=== PATIENT | male | born 1965 | race African-American/Black ===

== ENCOUNTER 2019-03-16 08:59 | Emergency (ER) | payer BC, MEDICARE, SELFPAY ==
[2019-03-16 09:36] VITALS: BP 144/86; PULSE 54; RESP 18; TEMP 36.9; O2SAT 98
--- NOTE | 2019-03-16 09:44 | ED.BACK ---
HPI - Back Pain/Injury General Chief Complaint: Extremity Problem,Nontraumatic Stated Complaint: Right Hip Pain Time Seen by Provider: 03/16/19 09:36 Source: patient and RN notes reviewed Mode of arrival: ambulatory Limitations: no limitations History of Present Illness HPI Narrative: Patient presents today with a 5-day history of right hip pain occasionally radiating down the right leg when he walks. He does report history of chronic low back pain. Denies numbness or tingling in the legs or feet. Denies any loss of bowel or bladder control. He currently rates his pain at rest 8/10, which increases to 10/10 with walking. He has been using BenGay, a pain patch, and Tylenol without much relief. Prior to onset of these symptoms, patient did help his brother move and was jumping up and down from a moving truck MD elicited complaint: back pain Related Data Home Medications Medication Instructions Recorded Confirmed albuterol sulfate 2 inh INHALATION DAILY 03/16/19 03/16/19 duloxetine 40 mg PO DAILY 03/16/19 03/16/19 montelukast 10 mg PO DAILY 03/16/19 03/16/19 pregabalin 200 mg PO DAILY 03/16/19 03/16/19 Allergies Allergy/AdvReac Type Severity Reaction Status Date / Time Iodinated Contrast Media Allergy Severe SOB, Unverified 03/16/19 09:08 THROAT TIGHTNESS, RASH Shrimp Allergy Severe SOB, Uncoded 03/16/19 09:08 THROAT TIGHTNESS, RASH Review of Systems Review of Systems: Narrative: CONSTITUTIONAL: Denies body aches, fever, chills, or sweats. EYES: Denies visual changes, redness, or discharge. ENT: Denies rhinorrhea, congestion, sore throat, or otalgia. CARDIOVASCULAR: Denies chest pain, palpitations, or edema. RESPIRATORY: Denies cough or dyspnea. GASTROINTESTINAL: Denies abdominal pain, nausea, vomiting, or diarrhea. GENITOURINARY: Denies dysuria or hematuria. SKIN: Denies rash, itching, or wounds. MUSCULOSKELETAL: Denies myalgia.+ Back pain, right hip pain NEUROLOGIC: Denies headache, numbness, tingling, or weakness. PSYCH: Denies depression or anxiety. PMFSH Comments At time of signature, I have reviewed and agree with nursing past medical, surgical, social and family history unless otherwise noted. Please see nursing chart for further information. There is no relevant family history pertinent to the presenting complaint Exam Narrative: Exam Narrative: GENERAL: Well-appearing, well-nourished, and in no acute distress. Pain out of proportion to exam findings. HEAD: Normocephalic, atraumatic. EYES: EOMI. No redness or drainage. Conjunctivae normal. ENT: Mucous membranes pink and moist. NECK: Normal AROM. Supple. No lymphadenopathy. CHEST: No respiratory distress. MUSCULOSKELETAL: No bony tenderness of the spine. Tenderness to the right SI joint and surrounding musculature. Palpation of the right SI joint causes reproducible shooting pain down the leg. Distal sensation intact. Saddle sensation intact. Capillary refill normal. Posterior tibial pulse normal. Leg strength normal and equal. EXTREMITIES: Normal range of motion. No edema. SKIN: Warm, dry, no rash. NEURO: No focal deficits. Alert and oriented x3. Gait steady. PSYCH: Normal affect. No signs of depression or anxiety. Course Vital Signs Vital signs: Vital Signs Temperature 98.5 F 03/16/19 09:36 Pulse Rate 54 L 03/16/19 09:36 Respiratory Rate 18 03/16/19 09:36 Blood Pressure 144/86 H 03/16/19 09:36 Pulse Oximetry 98 03/16/19 09:36 Temperature 98.5 F 03/16/19 09:36 Pulse Rate 54 L 03/16/19 09:36 Respiratory Rate 18 03/16/19 09:36 Blood Pressure 144/86 H 03/16/19 09:36 Pulse Oximetry 98 03/16/19 09:36 Reviewed. Pt has been instructed to follow up with his PCP regarding his elevated blood pressure today. MDM - Back Pain/Injury Differential Diagnosis Differential diagnosis: Likely lumbar radiculopathy, sciatica and strain of lumbar region Critical Care Time Critical Car
== END 2019-03-16 09:50 | disposition home or self-care (01) ==
PROVIDERS: Emergency Provider Nurse Practitioner
DX: M54.31 Sciatica, right side (principal); I20.9 Angina pectoris, unspecified; E78.00 Pure hypercholesterolemia, unspecified; I10 Essential (primary) hypertension; I25.2 Old myocardial infarction; Z86.711 Personal history of pulmonary embolism; K21.9 Gastro-esophageal reflux disease without esophagitis; M19.90 Unspecified osteoarthritis, unspecified site
CPT/HCPCS: 99203; G0463

== ENCOUNTER 2019-03-21 10:01 | Emergency (ER) | payer BC, MEDICARE, SELFPAY ==
--- NOTE | ~2019-03-21 | XR_ITS ---
XR hip RT min 2V DATE: 03/21/2019 11:06 INDICATION: Right hip pain TECHNIQUE: AP, lateral, crosstable lateral views COMPARISON: None FINDINGS: Postoperative change at L4-5. No fracture, dislocation, avascular necrosis or bone destruction of the right hip. Right hip joint sp nic is well preserved. Pubic symphysis and sacroiliac joints are intact. IMPRESSION: Negative right hip Reviewed, dictated and finalized at location A. TARY CHEMIST IMPRESSION: Negative right hip
--- NOTE | ~2019-03-21 | XR_ITS ---
XR lumbar spine 2-3V DATE: 03/21/2019 11:07 INDICATION: Lower back pain, right leg pain. History of back surgery. TECHNIQUE: AP, lateral, coned lateral lumbosacral views COMPARISON: 06/24/2016 lumbar spine FINDINGS: Again noted is postoperative change from anterior and interbody spinal fusion at L4-5. There is severe degenerative disc disease at L1-2, L2-3, L3-4, advanced since 06/24/2006. There is dis c space narrowing, prominent degenerative spurring and eburnation at each of these levels. No fracture or bone destruction is evident. The lumbar pedicles are intact. The sacroiliac joints domonique ear normal. IMPRESSION: Status post anterior and interbody spinal fusion at L4-5 Severe degenerative disc disease at L1-2 through L3-4 Reviewed, dictated and finalized at location A. RD CENTER SPECIALIST
[2019-03-21 10:21] VITALS: BP 142/86; PULSE 61; RESP 18; TEMP 36.2; O2SAT 100
--- NOTE | 2019-03-21 10:43 | ED.GENADULT ---
HPI - General Adult General Chief complaint: Extremity Injury, Lower Stated complaint: Pain in Thigh Time Seen by Provider: 03/21/19 10:43 Source: patient and RN notes reviewed Mode of arrival: ambulatory Limitations: no limitations History of Present Illness HPI narrative: This patient's had a 2-week history of right-sided back pain in the LS area and right hip which is now been radiating down the posterior aspect of the right leg to the sole of the foot. This is associated with numbness and tingling sensation as well as intermittent sharp pain. Is worse if he moves or bends over. He has had an LS fusion in 2003 at L4-L5 for degenerative disc disease. He has never had any fractures of his vertebra or his hip. He has never been told he has underlying osteoarthritis of the LS spine or right hip. The leg does not click, lock, pop, or give out on him. He is having no left-sided pain and no pain that radiates into the left gluteal area or down the left leg. He has no upper extremity, thoracic, or neck pain. He is otherwise been feeling well without any ear pain, no nasal drainage, no sore throat, no fever, no cough. He has had no nausea, no vomiting, no diarrhea. He has had no hematuria, no dysuria, no pyuria. He has had no rashes. He said no exposure to anyone with respiratory infections that he is aware of. Related Data Home Medications Medication Instructions Recorded Confirmed albuterol sulfate 2 inh INHALATION DAILY 03/16/19 03/16/19 duloxetine 40 mg PO DAILY 03/16/19 03/16/19 montelukast 10 mg PO DAILY 03/16/19 03/16/19 pregabalin 200 mg PO DAILY 03/16/19 03/16/19 prednisone 03/21/19 tadalafil mg 03/21/19 Allergies Allergy/AdvReac Type Severity Reaction Status Date / Time Iodinated Contrast Media Allergy Severe SOB, Unverified 03/16/19 09:08 THROAT TIGHTNESS, RASH Shrimp Allergy Severe SOB, Uncoded 03/16/19 09:08 THROAT TIGHTNESS, RASH Review of Systems Review of Systems: Narrative: CONSTITUTIONAL: Denies fever, chills, or sweats. Noncontributory except as pertains to the past medical history and history of present illness. EYES: Denies visual changes, redness, or discharge. ENT: Denies rhinorrhea, congestion, sore throat, or otalgia. CARDIOVASCULAR: Denies chest pain, palpitations, or edema. RESPIRATORY: Denies cough or dyspnea. GASTROINTESTINAL: Denies abdominal pain, nausea, vomiting, or diarrhea. GENITOURINARY: Denies dysuria or hematuria. SKIN: Denies rash or itching. MUSCULOSKELETAL: Denies back pain, joint pain, or myalgia. NEUROLOGIC: Denies headache, numbness, or weakness. PSYCHIATRIC: Denies anxiety or depression. PMFSH Comments At time of signature, I have reviewed and agree with nursing past medical, surgical, social, and family history.Please see nursing chart for further information. There is no relevant family history pertinent to the presenting complaint. Exam Narrative: Exam Narrative: GENERAL: Well-appearing, well-nourished, and in no acute distress. HEAD: Normocephalic, atraumatic. EYES: PERRLA and EOMI. EARS: TM's clear bilaterally and the canals are clear. NOSE: Nares clear, no rhinorrhea or epistaxis. THROAT:Mucous membranes moist.Oropharynx normal without erythema or exudates. NECK: Supple. No adenopathy of the neck, supraclavicular, axillary, or inguinal areas. There is no CVA pain. No pain in McBurney's point. Patient is a negative Bahena sign RESPIRATORY: No respiratory distress. Airway patent. Respirations non-labored. Clear to auscultation. HEART: Regular rate and rhythm. No murmur heard. Normal peripheral pulses. ABDOMEN: Soft, nontender, nondistended, normal active bowel sounds.No masses. No rebound or guarding, No organomegaly. And negative Rovsing sign. There are no pulsatile masses and no audible bruits. EXTREMITIES: No clubbing/cyanosis/ edema. Normal strength & range of motion. The patient has palpation tenderness on the right side of the
== END 2019-03-21 11:34 | disposition home or self-care (01) ==
PROVIDERS: Emergency Provider Family Medicine
DX: M54.31 Sciatica, right side (principal); I10 Essential (primary) hypertension; I25.2 Old myocardial infarction; Z98.1 Arthrodesis status
CPT/HCPCS: 72100; 73502; 99213; G0463

== ENCOUNTER → 2019-04-07 08:14 | Outpatient (CLI) | payer BC, MEDICARE, SELFPAY ==
--- NOTE | ~2019-04-07 | MR_ITS ---
EXAMINATION: MR lumbar spine wo con EXAM DATE: 04/07/2019 08:52 INDICATION: Lumbar radiculopathy. TECHNIQUE: Multi-sequential, multiplanar MR images of the lumbar spine were obtained without contrast . Sagittal T1, T2, T2 fat saturation images. Axial T2 weighted images. There is no prior study for comparison. FINDINGS: There is anterior and interbody fusion L4-5. There is moderate to severe disc disease L1-L4 , mild to moderate at L5-S1. Mild diffuse loss of lumbar vertebral body heights. Multilevel endplate degenerative signal change. There is 3 mm retrolisthesis L2 on L3, L3 on L4, L5 on S1. The conus medu llaris terminates at the T12-L1 level and has normal signal intensity and morphology. Paraspinal sof t tissue is unremarkable. Level by level evaluation: T12-L1: There is a mild diffuse disc bulge. Facet arthropathy: Mild. Neural foraminal stenosis: Mild bilateral. Central canal stenosis: No stenosis. L1-L2: There is a moderate diffuse disc bulge. Facet arthropathy: Mild to moderate. Neural foraminal stenosis: Moderate bilateral. Central canal stenosis: Mild. L2-L3: There is a moderate to large diffuse disc bulge. Facet arthropathy: Mild to moderate. Neural foraminal stenosis: Moderate to severe right, moderate left. Central canal stenosis: Mild to moderate. L3-L4: There is a moderate to large diffuse disc bulge. Facet arthropathy: Mild to moderate. Neural foraminal stenosis: Moderate to severe right, moderate left. Central canal stenosis: Moderate. L4-L5: This level is fused. Facet arthropathy: Mild. Neural foraminal stenosis: Mild bilateral. Central canal stenosis: No stenosis. L5-S1: There is a mild to moderate diffuse disc bulge. Facet arthropathy: Mild to moderate. Neural foraminal stenosis: Moderate bilateral. Central canal stenosis: Mild. IMPRESSION: 1. Advanced upper lumbar disc disease. Reviewed, dictated and finalized at location B. ATE BRANCH EXCHANGE SERVICE ADVISER
--- NOTE | ~2019-04-07 | XR_ITS ---
EXAMINATION: XR lumbar spine 6V w bending EXAM DATE: 04/07/2019 09:13 INDICATION: Lumbar radiculopathy. Right leg pain. TECHNIQUE: Lumber spine frontal, lateral, bilateral oblique projections. Coned down frontal and lat eral L5-S1 lumbar projections for interpretation. Additional lateral flexion and lateral extension p rojections obtained. FINDINGS: No spondylolysis suspected. There is anterior and interbody fusion L4-5. Moderate to severe disc disease L1-L4. There is 3 mm retrolisthesis L3 on L4 and L4 on L5 on the lateral projections. T here is about 2 mm retrolisthesis L1 on L2 on the extension projection which normalizes on the flexio n projection. There are moderate-sized bilateral bridging endplate osteophytes L1-L4. There is mild t o moderate lumbar facet arthropathy. Sacrum, sacroiliac joints, sacral arcuate lines are intact. Para spinal soft tissue is unremarkable. Mild diffuse loss of vertebral body heights without acute fractur e line identified. IMPRESSION: 1. Advanced upper lumbar disc disease. 2. Grade 1 retrolistheses as above. Reviewed, dictated and finalized at location B. L CUTTER
== END ==
PROVIDERS: Visit Provider Physician Assistant Medical
DX: M54.16 Radiculopathy, lumbar region (principal); M51.36 Other intervertebral disc degeneration, lumbar region
CPT/HCPCS: 72114; 72148

== ENCOUNTER 2020-01-01 11:48 | Observation (INO) | payer BC, MEDICARE, SELFPAY ==
[2020-01-01] VITALS (29 sets, daily range): BP systolic 116–157; BP diastolic 50–98; PULSE 76–115; RESP 16–31; TEMP 36.8–37.9; O2SAT 92–98
--- NOTE | ~2020-01-01 | XR_ITS ---
EXAMINATION: XR shoulder LT min 2V EXAM DATE: 01/02/2020 13:52 INDICATION: Initial encounter following injury, with pain of the left shoulder. Fall. TECHNIQUE: The following left shoulder projections obtained: frontal projection with internal rotatio n, frontal projection with external rotation, Grashey, and scapular Y view (4+ views). There is no p rior study for comparison. FINDINGS: No evidence of left shoulder rotator cuff calcific tendinosis. There is mild glenohumera l and acromioclavicular joint primary osteoarthritis. There are no acute fractures or dislocations id entified. There is no subcutaneous gas. The soft tissue is unremarkable. There are no radiopaque foreign bodies. IMPRESSION: 1. Left shoulder exam without acute osseous findings. Reviewed, dictated and finalized at location A. CAPTAIN
--- NOTE | ~2020-01-01 | XR_ITS ---
EXAMINATION: XR chest 1V portable EXAM DATE: 01/01/2020 12:55 INDICATION: covid+/shortness of breath. TECHNIQUE: Portable AP frontal chest x-ray was obtained. Comparison is made to prior examination from 02/21/2015. FINDINGS: Moderate amount of patchy bilateral mid and lower lung zone acute airspace disease. Appeara nce is consistent with provided history of COVID-19. Elevated left hemidiaphragm is unchanged compare d to prior study. No pneumothorax or pleural effusion. The cardiomediastinal silhouette is prominent but magnified on this AP technique. IMPRESSION: Moderate amount of bilateral patchy acute infectious process. Reviewed, dictated and finalized at location A. TING SERVICES COORDINATOR
--- NOTE | ~2020-01-01 | CT_ITS ---
EXAMINATION: CT brain wo con EXAM DATE: 01/02/2020 13:03 INDICATION: Dizziness, fall. TECHNIQUE: Spiral CT of the head was performed without contrast. Axial, coronal and sagittal images were reviewed. The dose-length product (DLP) for this examination was 605.33 mGy-cm. The exposure w as tailored according to patient size, and iterative reconstruction (ASIR) was used as additional dos e reduction technique. There is no prior study for comparison. FINDINGS: There is no acute intraparenchymal hemorrhage. No evidence of intraparenchymal brain mass lesion. No evidence of acute infarction. There is no mass effect or midline shift. The ventricles are normal in size. There are no extra-axial collections. There are no acute calvarial fractures. T he orbits are unremarkable. Soft tissue is unremarkable. The visualized sinuses and mastoid air jessica ls are well aerated. IMPRESSION: 1. No acute intracranial findings. Reviewed, dictated and finalized at location A. D DEVELOPMENT MANAGER
--- NOTE | ~2020-01-01 | CT_ITS ---
EXAMINATION: CTA chest PE protocol EXAM DATE: 01/03/2020 09:10 INDICATION: Tachypnea, tachycardia . COVID 19 positive. Flow in TECHNIQUE: Spiral CTA of the chest (pulmonary arteries) was performed with 100 cc Omnipaque 350 intr avenous contrast injection. Images were acquired during the pulmonary arterial phase. Coronal maxi mum intensity projection 3D-reconstructions were created by the technologist on dedicated workstation . Axial, coronal and sagittal reformatted images were reviewed. The dose-length product (DLP) for t his examination was 728.53 mGy-cm. The exposure was tailored according to patient size (auto mA exp osure control), and iterative reconstruction (ASIR) was used as additional dose reduction technique. Comparison is made to prior examination from 12/29/2010. FINDINGS: Pulmonary arteries are well opacified and without intraluminal filling defects. No thora cic aortic dissection. Moderate amount of patchy bilateral groundglass opacities with small regions of linear confluence. Appearance is consistent with COVID-19 pneumonia. There are no pleural or benji cardial effusions. Tracheobronchial tree is patent. There is no mediastinal, hilar or axillary ly mphadenopathy. There is no pneumothorax. Heart normal in size. No evidence of coronary arterial calcification. Upper abdomen is unremarkable. There is mild thoracic spondylosis without osteobla stic or osteolytic lesions identified. IMPRESSION: 1. No pulmonary emboli. 2. Moderate amount of acute airspace disease consistent with COVID-19 pneumonia. Reviewed, dictated and finalized at location B. NESS PROGRAM COORDINATOR IMPRESSION: 1. No pulmonary emboli. 2. Moderate amount of acute airspace disease consistent with COVID-19 pneumoni a.
--- NOTE | 2020-01-01 11:54 | ECG_ITS ---
Measurements Intervals [place] Rate: 115 P: 42 MN: 169 QRS: 56 QRSD: 84 T: -7 QT: 301 QTc: 418 Interpretive Statements SINUS TACHYCARDIA EARLY PRECORDIAL R/S TRANSITION NONSPECIFIC T-WAVE ABNORMALITY- ANTEROLAT/INF LEADS BASELINE ARTIFACT- I, II, AVR, AVL, AVF, V4-V6 ABNORMAL ECG Electronically Signed On 01-01-2020 17:00:51 TANK INSULATOR RUBBER by Adama Shell D.O.
[2020-01-01 12:14] LABS: Basophils Percent Auto 0.2 % (0.2-1.2); Hematocrit 41.6 % (42.0-52.0); Hemoglobin 14.7 g/dL (14.0-18.0); Immature Granulocyte Absolute 0.08 K/mm3 (0.00-0.031); Immature Granulocyte Percent A 0.7 % (0-0.5); Lymphocytes Absolute Auto 0.86 K/mm3 (0.9-3.2); Mean Corpuscular HGB Conc 35.3 g/dl (32-36); Mean Corpuscular Hemoglobin 28.2 pg (26-34); Mean Corpuscular Volume 79.7 fl (80-100); Mean Platelet Volume 10.9 fl (7.4-10.4); Monocytes Absolute Auto 0.3 K/mm3 (0.1-0.6); Monocytes Percent Auto 3.1 % (2.6-8.5); Neutrophils Absolute Auto 9.5 K/mm3 (1.3-6.7); Platelet Count Result 249 k/mm3 (150-375); Red Blood Count 5.22 M/mm3 (4.6-6.20); Red Cell Distribution Width 13.2 % (11.5-14.5); White Blood Count 10.8 K/mm3 (4.5-10.0)
[2020-01-01 12:28] LABS: Alanine Aminotransferase 15 U/L (4-50); Albumin Level 4.2 g/dL (3.5-5.1); Alkaline Phosphatase 77 U/L (38-126); Anion Gap 9 mmol/L (8-16); Aspartate Amino Transferase 36 U/L (17-59); Bilirubin,Total 0.9 mg/dL (0.2-1.3); Blood Urea Nitrogen 14 mg/dL (9-20); CRP 4.6 mg/dL (<1.0); Carbon Dioxide 28 mmol/L (22-30); Chloride 97 mmol/L (98-107); Estimated CRCL calculation 84 ml/min; Estimated Glomerular Filt Rate > 60; Glucose 156 mg/dL (75-110); Potassium 3.9 mmol/L (3.4-5.0); Sodium 134 mmol/L (137-145)
[2020-01-01 12:30] LABS: INR 1.1; Prothrombin Time 14.7 Seconds (11.1-14.7)
[2020-01-01] MEDS: ACETAMINOPHEN 500 MG TABLET 1000 MG PO (13:54)
[2020-01-01] MEDS: SODIUM CHLORIDE 0.9% IV 1,000 ML 999 ML IV CONT (13:54)
[2020-01-01] MEDS: DEXAMETHASONE SOD PHOS INJ 4 MG/ML VIAL 6 MG IV PUSH (13:54)
[2020-01-01 13:59] LABS: Add Urine Microscopic? YES; Appearance Urine Clear (Clear); Bilirubin Urine Negative (Negative); Blood Urine Negative (Negative); Color Urine Yellow (Yellow); Glucose Urine UA Negative (Negative); Ketones Urine Negative (Negative); Leukocyte Esterase Ur Negative LEU/UL (Negative); Nitrate Urine Negative (Negative); Protein Urine 2+ mg/dL (Negative); RBC Urine 0-2 /hpf (0-2); Squamous Epithelial Cell Urine Rare /hpf (Few); WBC Urine 0-3 /hpf
--- NOTE | 2020-01-01 14:52 | ED.SOB ---
HPI - SOB/Dyspnea General Chief Complaint: Shortness of Breath/Dyspnea Stated Complaint: sob Time Seen by Provider: 01/01/20 12:39 History of Present Illness HPI Narrative: Patient is a 54-year-old male who presents ER with weakness and shortness of breath. Found to require oxygen at the urgent care after walking and referred here. Was diagnosed with COVID-19 1 week ago. His family his all have the illness. Reports he has severe decrease in his ability to ambulate without dizziness and shortness of breath. Related Data Home Medications Medication Instructions Recorded Confirmed albuterol sulfate 2 inh INHALATION DAILY PRN 03/16/19 01/01/20 duloxetine 40 mg PO Q12H 03/16/19 01/01/20 pregabalin 300 mg PO Q12H 03/16/19 01/01/20 cetirizine [Zyrtec] 10 mg PO DAILY 01/01/20 01/01/20 tramadol 50 mg PO Q6H PRN 01/01/20 01/01/20 Allergies Allergy/AdvReac Type Severity Reaction Status Date / Time Iodinated Contrast Media Allergy Severe SOB, Verified 01/01/20 17:42 THROAT TIGHTNESS, RASH Shrimp Allergy Severe SOB, Uncoded 03/16/19 09:08 THROAT TIGHTNESS, RASH Review of Systems Review of Systems: All systems reviewed & are unremarkable except as noted in HPI and below Constitutional: Constitutional: Reports chills, Reports fatigue and Reports fever(s) Cardiovascular: Cardiovascular: Denies chest pain and Denies radiating jaw, neck or arm pain Respiratory: Respiratory: Reports cough, Reports dyspnea and Reports wheezing Gastrointestinal: Gastrointestinal: Denies abdominal pain, Denies nausea and Denies vomiting [facility] Past Medical History Medical History (Updated 01/02/20 @ 23:37 by Demetris Jackson MD) Asthma Chronic back pain Depression Surgical History Surgical History (Updated 01/01/20 @ 18:42 by Yaneth Mcfarland NP) H/O left knee surgery Previous back surgery S/P left rotator cuff repair Family History Family History Mother Acute myocardial infarction Asthma Hypertension Sibling Acute myocardial infarction Sibling Acute myocardial infarction Diabetes mellitus Father History of blood clots Colon cancer Prostate carcinoma Social History Social History (Updated 01/01/20 @ 18:44 by Yaneth Mcfarland NP) Social History: The patient had 2 children from a previous and 2 from his current and adopted his knees. His son at the age of 27 with asthma attack. He is currently and lives with his and children. 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 Lifelong nonsmoker. He denies any marijuana alcohol or drug use. The patient desires to be full code and his is a durable power assistant county attorney for healthcare. Smoking status: Never smoker Second hand tobacco smoke exposure: No Alcohol intake: never Substance use: never Substance use type: does not use Gender identity (if verbalized by the patient): Male Spiritual care concerns: No Exam Narrative: Exam Narrative: GENERAL: ill-appearing, well-nourished, and in mild distress. HEAD: Normocephalic, atraumatic. EYES: PERRL and EOMI. CHEST: Faint rales/rhonchi. Increased respiratory rate. HEART: Tachycardic and regular. Normal peripheral pulses. ABDOMEN: Soft, nontender, nondistended. EXTREMITIES: Normal range of motion. No edema. SKIN: Warm, dry, no rash. NEURO: Alert and oriented x3. PSYCH: Normal mood and affect. Course Course Emergency Course: Admit to hospital service for COVID-19 pneumonia and exertional hypoxia. Vital Signs Vital signs: Vital Signs Pulse Rate 114 H 01/01/20 12:02 Respiratory Rate 22 H 01/01/20 12:02 Pulse Oximetry 92 01/01/20 12:02 Temperature 98.5 F 01/02/20 20:00 Pulse Rate 91 01/02/20 20:00 Respiratory Rate 18 01/02/20 20:00 Blood Pressure 126/78 01/02/20 20:00 Pulse Oximetry 94 01/02/20 20:00 MDM - SOB/Dyspnea Lab Data Re
--- NOTE | 2020-01-01 17:41 | ADMGEN ---
This patient, Gagan Giles, was admitted to [facility] Surg Room 313-01. Patient/family oriented to hospital policies and general routines including ID bracelet, bed and alarms, visiting hours, pain management, procedures, bathroom and other care routines, personal items, smoking policy, room service/diet, and visiting hours. Information on how to activate the Rapid Response Team has been discussed. Patient/Family are encouraged to report perceived risks to care and to ask questions if they do not understand what they are told or what they should do.
--- NOTE | 2020-01-01 18:37 | PM.IMHP ---
H&P: HPI History of Present Illness Date/Time: 01/01/20 18:37 Chief complaint: COVID, Pneumonia Narrative: Gagan Giles is a 54 year old male positive for COVID approximately 1 week ago. The patient had high fevers then in is still running fevers. The patient has been on room air this entire time. Patient has body aches and had a sore throat. He had some generalized weakness. The patient stated that he became short of breath today. The patient stated that his whole family has tested positive for COVID and that they have been quarantine for the last week. His brother also has the symptoms but has not had his results back yet from [facility]. The patient stated that he has been using an albuterol inhaler that he was given a long time ago. He is not sure if it was still good are not often had . He has no nausea vomiting or diarrhea. Patient was tachypneic when he 1st came to the emergency room. His respirations were 44. There are now in the 20s. Patient was started on Decadron. Since the patient remains on room air he was not started on any antiviral. C reactive protein 4.6. Moderate amount bilateral patchy acute infectious process. The patient had a temperature of 37.9 degree C or 100.2? F. Patient was entered into observation status on date of admission 01/01/2020 Review of Systems Review of Systems: All systems reviewed & are unremarkable except as noted in HPI and below Constitutional: Constitutional: Reports as per HPI and Reports no additional constitutional complaints Eyes: Eyes: Reports as per HPI and Reports no additional eye complaints ENT: Reports system reviewed and no additional complaints, except as documented and Reports Normal hearing present Cardiovascular: Cardiovascular: Reports no additional cardiovascular complaints Respiratory: Respiratory: Reports no additional respiratory complaints and Reports no additional respiratory complaints Gastrointestinal: Gastrointestinal: Reports as per HPI and Reports no additional gastrointestinal complaints Musculoskeletal: Musculoskeletal: Reports no additional musculoskeletal complaints Integumentary/Breasts: Skin/Breast: Reports system reviewed and no additional complaints, except as docu and Reports as per HPI Neurologic: Reports system reviewed and no additional complaints, except as documented, Reports as per HPI and Reports Normal hearing present Psychiatric: Psychiatric: Reports no additional psychiatric complaints and Reports as per HPI Endocrine: Endocrine: Reports no additional endocrine complaints Hematologic/Lymphatic: Hematologic/Lymphatic: Reports no additional hematologic/lymphatic complaints Allergic/Immunologic: Allergic/Immunologic: Reports no additional allergic/immunologic complaints [facility] Past Medical History Medical History (Updated 01/01/20 @ 19:04 by Yaneth Mcfarland NP) Asthma Chronic back pain Depression Surgical History Surgical History (Updated 01/01/20 @ 18:42 by Yaneth Mcfarland NP) H/O left knee surgery Previous back surgery S/P left rotator cuff repair Family History Family History Mother Acute myocardial infarction Asthma Hypertension Sibling Acute myocardial infarction Sibling Acute myocardial infarction Diabetes mellitus Father History of blood clots Colon cancer Prostate carcinoma Social History Social History (Updated 01/01/20 @ 18:44 by Yaneth Mcfarland NP) Social History: The patient had 2 children from a previous and 2 from his current and adopted his knees. His son at the age of 27 with asthma attack. He is currently and lives with his and children. 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 Lifelong nonsmoker. He denies any marijuana alcohol or drug use. The patient desires to be full code and his is a durable power asset specialist for healthcare. Smoking status: Never s
[2020-01-01 20:00] LABS: Hemoglobin A1C 6.8 % (<5.7)
[2020-01-01] MEDS: DULoxetine HCL 20 MG CAPSULE.DR 40 MG PO (21:48)
[2020-01-01] MEDS: PREGABALIN (*CRX) 75 MG CAPSULE 300 MG PO (21:48)
[2020-01-01 22:52] LABS: Glucose Point of Care 246 (65-105)
[2020-01-02] VITALS (11 sets, daily range): BP systolic 106–142; BP diastolic 43–84; PULSE 71–110; RESP 18–20; TEMP 36.4–37.3; O2SAT 90–95
[2020-01-02] MEDS: ACETAMINOPHEN 325 MG TABLET 650 MG PO (05:44)
[2020-01-02 07:18] LABS: Basophils Percent Auto 0.1 % (0.2-1.2); Hemoglobin 13.7 g/dL (14.0-18.0); Immature Granulocyte Absolute 0.11 K/mm3 (0.00-0.031); Immature Granulocyte Percent A 0.9 % (0-0.5); Lymphocytes Absolute Auto 1.64 K/mm3 (0.9-3.2); Lymphocytes Percent Auto 12.7 % (18.3-44.2); Mean Corpuscular HGB Conc 35.1 g/dl (32-36); Mean Corpuscular Hemoglobin 28.1 pg (26-34); Mean Corpuscular Volume 79.9 fl (80-100); Mean Platelet Volume 11.1 fl (7.4-10.4); Monocytes Absolute Auto 0.5 K/mm3 (0.1-0.6); Monocytes Percent Auto 3.7 % (2.6-8.5); Neutrophils Absolute Auto 10.7 K/mm3 (1.3-6.7); Neutrophils Percent Auto 82.6 % (45.5-73.1); Platelet Count Result 280 k/mm3 (150-375); Red Blood Count 4.88 M/mm3 (4.6-6.20); Red Cell Distribution Width 13.2 % (11.5-14.5); White Blood Count 12.9 K/mm3 (4.5-10.0)
[2020-01-02 07:36] LABS: Alanine Aminotransferase 16 U/L (4-50); Albumin Level 3.9 g/dL (3.5-5.1); Alkaline Phosphatase 68 U/L (38-126); Anion Gap 9 mmol/L (8-16); Aspartate Amino Transferase 28 U/L (17-59); Bilirubin,Total 0.7 mg/dL (0.2-1.3); Blood Urea Nitrogen 17 mg/dL (9-20); Carbon Dioxide 28 mmol/L (22-30); Chloride 99 mmol/L (98-107); Estimated CRCL calculation 84 ml/min; Estimated Glomerular Filt Rate > 60; Glucose 159 mg/dL (75-110); Magnesium 2.3 mg/dL (1.6-2.3); Potassium 4.1 mmol/L (3.4-5.0); Sodium 136 mmol/L (137-145)
[2020-01-02 08:21] LABS: Glucose Point of Care 149 (65-105)
[2020-01-02] MEDS: ENOXAPARIN 40 MG/0.4 ML SYRINGE SUB-Q (08:54)
[2020-01-02] MEDS: DEXAMETHASONE SOD PHOS INJ 4 MG/ML VIAL 6 MG IV PUSH (08:55)
[2020-01-02] MEDS: DULoxetine HCL 20 MG CAPSULE.DR 40 MG PO ×2 (08:55→21:25)
[2020-01-02] MEDS: LORATADINE 10 MG TABLET PO (08:56)
[2020-01-02] MEDS: PREGABALIN (*CRX) 75 MG CAPSULE 300 MG PO ×2 (09:12→21:26)
[2020-01-02] MEDS: ALBUTEROL SULFATE (*SP) AEROSOL 1 PUFF 2 PUFF INHALATION ×4 (09:31→19:22)
--- NOTE | 2020-01-02 12:03 | ECG_ITS ---
Measurements Intervals [place] Rate: 94 P: 59 MO: 167 QRS: 61 QRSD: 89 T: 17 QT: 343 QTc: 431 Interpretive Statements SINUS RHYTHM EARLY PRECORDIAL R/S TRANSITION NONSPECIFIC T-WAVE ABNORMALITY- ANT/INF LEADS BASELINE WANDER- I, II, V3-V4 BORDERLINE ECG Electronically Signed On 01-02-2020 17:13:35 TELECOM ANALYST by Adama Shell D.O.
[2020-01-02 12:12] LABS: Alveolar/Arterial O2 Gradient 51.3 mmHg; Base Excess ABG 3.4 mEq/l (+/-2.0); Carboxyhemoglobin 0.3 % THb (0-2.0); Fractional Inspired Oxygen 21 %; HCO3 ABG 25.9 mEq/l (22.0-26.0); Methemoglobin ABG 0.4 %THb (0-1.5); Oxygen Content ABG 18.3 %vol (16.0-22.0); Oxyhemoglobin 90.9 % THb (90.0-100.0); PCO2 ABG 33.2 mmHg (35.0-45.0); PO2 ABG 58.7 mmHg (80.0-100.0); Reduced Hemoglobin 8.4 %THb (0-5.0); Total Hemoglobin 14.3 g/dL (12.0-18.0)
[2020-01-02 12:13] LABS: Device ROOM AIR; Modified Allen's Test Pass; Site Drawn LEFT RADIAL
--- NOTE | 2020-01-02 12:16 | HOMEO2EVAL ---
Home Oxygen Evaluation RC: Home Oxygen (O2) Evaluation Start: 01/02/20 08:25 Freq: ONCE Status: Active Protocol: RPE Activity Type Activity Date Activity User E-Sign Co-Sign Detail Recorded Client Recorded Date Recorded By Document 01/02/20 11:52 CLC [id number] 01/02/20 12:16 CLC Document 01/02/20 11:55 CLC [id number] 01/02/20 12:16 CLC 01/02/20 01/02/20 11:52 11:55 Home O2 Evaluation Test Phase Resting Exercise Oxygen Delivery Room Air Room Air Pulse Oximetry (90-100 %) 90 90 Pulse Rate (60-100 beats/min) 100 110 H Activity Tolerance Fair Rating of Perceived Dyspnea (PD) +2 Mild, Some Difficulty, Noticeable to the Observer Ambulation Distance (feet) 15 Treatment Charges O2 Evaluation
--- NOTE | 2020-01-02 12:29 | PM.IMPN ---
Progress Note: A&P Assessment and Plan (1) COVID-19: Code(s): U07.1 - COVID-19 Status: Acute Assessment and Plan: The pt tested positive for COVID-19 12/23. CXR demonstrates moderate bilateral patchy consolidation. Symptoms started 2 days prior to testing positive. He is not hypoxic at rest. He is on dexamethasone (day 03/22 - initiated 12/31). Oxygen decreased to 90% on home oxygen evaluation. Remdesivir is not indicated at this time since he is not hypoxic and he is feeling better. He has a hx of pulmonary embolism. He had iodinated contrast media in the past with pre-medication prophylaxis and reports no adverse reaction. Discussed risk for PE and he would like to proceed with CTA tomorrow. Will pre-medicate. (2) Asthma: Code(s): J45.909 - Unspecified asthma, uncomplicated Status: Chronic Assessment and Plan: Does not appear to be in acute exacerbation. Continue albuterol PRN. Continue to monitor. (3) Chronic back pain: Code(s): M54.9 - Dorsalgia, unspecified; G89.29 - Other chronic pain Status: Chronic Assessment and Plan: Continue duloxetine, pregabalin, and norco as needed. (4) Depression: Code(s): F32.9 - Major depressive disorder, single episode, unspecified Status: Chronic Assessment and Plan: Continue prior to admission duloxetine. (5) Impaired glucose tolerance: Code(s): R73.02 - Impaired glucose tolerance (oral) Status: Acute Assessment and Plan: Hemoglobin A1c is 5.8%. Blood sugars are elevated and may, in part, be exacerbated by steroid therapy. I will discuss metformin with him at discharge as I think he would benefit. Continue ACHS glucose monitoring, sliding scale insulin, and hypoglycemia protocol. Continue to monitor. (6) Dizziness: Code(s): R42 - Dizziness and giddiness Status: Acute Assessment and Plan: Possibly vestibular migraine, exacerbated by COVID, as he has a left sided headache, photophobia, and vertigo. He has a hx of migraines in the past. CT brain was negative for acute pathology. Start meclizine. Continue antiemetic as needed. Add benzodiazepine as needed as well. (7) Fall: Code(s): W19.XXXA - Unspecified fall, initial encounter Status: Acute Assessment and Plan: Secondary to dizziness. He reports no loss of consciousness. CT brain was ordered and is unremarkable. Left shoulder xray is negative for fracture. Continue fall precautions. Subjective Date/time seen: 01/02/20 12:29 Mr. Giles is a 54 y.o. male with PMH significant for depression, chronic back pain, and asthma who is seen in follow-up for COVID-19 pneumonia. I was called to his room as he suffered a fall during his home oxygen evaluation. Respiratory therapy was in the room when he fell. He reports that he has had a left-sided migraine since he got here with photophobia and dizziness. He describes the dizziness as room spinning . He notes that he started to feel very dizzy during the home oxygen evaluation which caused him to fall. He reports that he did not loose consciousness and the respiratory therapist confirmed he was responsive throughout fall with no loss of consciousness. His oxygen saturation was 90%. He did not have any associated chest pain or palpitations. He does feel short of breath. He reports cough as well. He did not have any nausea or vomiting. His stools are loose. Review of Systems Review of Systems: All systems reviewed & are unremarkable except as noted in HPI and below Exam Narrative: Exam Narrative: General: Very pleasant, well-developed and well-nourished 54 y.o. male who is seen after falling. He fell forward after feeling dizzy during home oxygen evaluation. HEENT: Normocephalic and atraumatic. Scleare anicteric. Conjunctivae without injection or exudatel. PERRL. EOMI. Oral mucosa moist. Neck: Supple. Cardiac: Tachycardia. Regular r
[2020-01-02 12:34] LABS: Glucose Point of Care 228 (65-105)
[2020-01-02] MEDS: INSULIN ASPART (*BKC) 100 UNITS/ML SUB-Q ×2 (13:17→17:36)
[2020-01-02] MEDS: MECLIZINE HCL 12.5 MG TABLET PO ×3 (13:17→21:26)
[2020-01-02 17:26] LABS: Glucose Point of Care 250 (65-105)
[2020-01-02] MEDS: predniSONE 40 MG, predniSONE 10 MG 50 MG PO (20:00)
[2020-01-02] MEDS: FAMOTIDINE 20 MG TABLET PO (21:26)
[2020-01-02] MEDS: guaiFENesin/DEXTROMETHORPHAN 10 ML UDC PO (21:27)
[2020-01-02 22:32] LABS: Glucose Point of Care 216 (65-105)
[2020-01-03] VITALS (7 sets, daily range): BP systolic 115–159; BP diastolic 78–96; PULSE 62–93; RESP 16–20; TEMP 36.1–36.9; O2SAT 93–98
[2020-01-03] MEDS: predniSONE 40 MG, predniSONE 10 MG 50 MG PO ×2 (02:00→08:21)
[2020-01-03] MEDS: ALBUTEROL SULFATE (*SP) AEROSOL 1 PUFF 2 PUFF INHALATION ×3 (08:14→15:16)
[2020-01-03] MEDS: DULoxetine HCL 20 MG CAPSULE.DR 40 MG PO (08:22)
[2020-01-03] MEDS: DEXAMETHASONE SOD PHOS INJ 4 MG/ML VIAL 6 MG IV PUSH (08:22)
[2020-01-03] MEDS: FAMOTIDINE 20 MG TABLET PO (08:23)
[2020-01-03] MEDS: ENOXAPARIN 40 MG/0.4 ML SYRINGE SUB-Q (08:23)
[2020-01-03] MEDS: MECLIZINE HCL 12.5 MG TABLET PO ×2 (08:24→12:53)
[2020-01-03] MEDS: LORATADINE 10 MG TABLET PO (08:24)
[2020-01-03] MEDS: PREGABALIN (*CRX) 75 MG CAPSULE 300 MG PO (08:25)
[2020-01-03] MEDS: diphenhydrAMINE HCl CAP 25 MG CAPSULE 50 MG PO (08:26)
[2020-01-03] MEDS: guaiFENesin/DEXTROMETHORPHAN 10 ML UDC PO (08:31)
[2020-01-03 08:34] LABS: Basophils Percent Auto 0.1 % (0.2-1.2); Hematocrit 38.2 % (42.0-52.0); Hemoglobin 13.3 g/dL (14.0-18.0); Immature Granulocyte Absolute 0.09 K/mm3 (0.00-0.031); Immature Granulocyte Percent A 0.9 % (0-0.5); Lymphocytes Absolute Auto 0.96 K/mm3 (0.9-3.2); Mean Corpuscular HGB Conc 34.8 g/dl (32-36); Mean Corpuscular Hemoglobin 28.4 pg (26-34); Mean Corpuscular Volume 81.6 fl (80-100); Mean Platelet Volume 10.9 fl (7.4-10.4); Monocytes Absolute Auto 0.3 K/mm3 (0.1-0.6); Monocytes Percent Auto 2.8 % (2.6-8.5); Neutrophils Absolute Auto 8.3 K/mm3 (1.3-6.7); Neutrophils Percent Auto 86.2 % (45.5-73.1); Platelet Count Result 314 k/mm3 (150-375); Red Blood Count 4.68 M/mm3 (4.6-6.20); Red Cell Distribution Width 13.4 % (11.5-14.5); White Blood Count 9.6 K/mm3 (4.5-10.0)
[2020-01-03 08:52] LABS: Alanine Aminotransferase 17 U/L (4-50); Albumin Level 3.7 g/dL (3.5-5.1); Alkaline Phosphatase 61 U/L (38-126); Anion Gap 7 mmol/L (8-16); Aspartate Amino Transferase 25 U/L (17-59); Bilirubin,Total 0.6 mg/dL (0.2-1.3); Blood Urea Nitrogen 19 mg/dL (9-20); CRP 2.4 mg/dL (<1.0); Calcium 8.9 mg/dL (8.4-10.2); Carbon Dioxide 29 mmol/L (22-30); Chloride 99 mmol/L (98-107); Estimated CRCL calculation 84 ml/min; Estimated Glomerular Filt Rate > 60; Glucose 276 mg/dL (75-110); Lactate Dehydrogenase 520 U/L (313-618); Potassium 4.4 mmol/L (3.4-5.0); Sodium 135 mmol/L (137-145)
[2020-01-03] MEDS: INSULIN ASPART (*BKC) 100 UNITS/ML SUB-Q (12:55)
--- NOTE | 2020-01-03 13:57 | PM.DS ---
DS: Admitting Diagnosis Admitting Diagnosis Admitting Diagnosis: COVID, Pneumonia DS: Discharge Diagnosis Discharge Diagnosis (1) COVID-19: Code(s): U07.1 - COVID-19 Status: Acute Assessment and Plan: Discharge Summary (Date of service 01/03/20): Mr. Giles is a 54 y.o. male with PMH significant for depression, chronic back pain, and asthma who presented to the emergency department for the evaluation of fever, shortness of breath, and dizziness. He tested positive for COVID-19 12/23. CXR demonstrated moderate bilateral patchy consolidation. Symptoms started 2 days prior to testing positive. He was tachypneic and treated with dexamethasone. Remdesivir was not indicated since he was not hypoxic. He felt significantly better following dexamethasone therapy. He also noted dizziness and had a mirgraine. He did fall due to his dizziness on 01/02/20. He noted that the room felt like it was spinning. He had no loss of consciousness or lateralizing symptoms. he did not suffer any injuries. STAT CT bbrain was ordered after the fall and unremarkable. He was given meclizine and his dizziness completely resolved. His migraine also subsided. He had a hx of pulmonary embolism and CTA chest was performed to r/o PE. CTA chest was negative for PE. He felt significantly better and requested to go home. Home oxygen evaluation was performed and he did not require supplemental oxygen at rest or with activity. He was discharged in hemodynamically stable condition on the afternoon of 01/03/20. He understood symptoms which would warrant return for emergent evaluation. He was advised to follow-up with his PCP within 1 week. (2) Asthma: Code(s): J45.909 - Unspecified asthma, uncomplicated Status: Chronic Assessment and Plan: Does not appear to be in acute exacerbation. Albuterol was continued as needed. (3) Chronic back pain: Code(s): M54.9 - Dorsalgia, unspecified; G89.29 - Other chronic pain Status: Chronic Assessment and Plan: Duloxetine, pregabalin, and norco were continued as needed. (4) Depression: Code(s): F32.9 - Major depressive disorder, single episode, unspecified Status: Chronic Assessment and Plan: Prior to admission duloxetine was continued. (5) Impaired glucose tolerance: Code(s): R73.02 - Impaired glucose tolerance (oral) Status: Acute Assessment and Plan: Hemoglobin A1c is 5.8%. Blood sugars are elevated and may, in part, be exacerbated by steroid therapy. Lifestyle interventions were advised including low carb diet and exercise. I discussed that he could speak with his PCP about metformin. (6) Dizziness: Code(s): R42 - Dizziness and giddiness Status: Resolved Assessment and Plan: Possibly vestibular migraine as exacerbated by COVID, as he has a left sided headache, photophobia, and vertigo. He has a hx of migraines in the past. CT brain was negative for acute pathology. Symptoms resolved with meclizine. He will need to follow-up with his PCP outpatient. (7) Fall: Code(s): W19.XXXA - Unspecified fall, initial encounter Status: Acute Assessment and Plan: Secondary to dizziness. He reports no loss of consciousness. CT brain was ordered and is unremarkable. Left shoulder xray is negative for fracture. Fall precautions were advised for discharge. His dizziness resolved completely with meclizine and he had no further symptoms or falls. DS: Summary Hospital Course Reason for hospitalization: Shortness of breath Hospital Course: As above. Status at Discharge Functional status at discharge: independent ambulation Overall status at discharge: patient is back to baseline Time Spent with Patient Time attestation: Total time spent providing and/or coordinating discharge services: 40 minutes Exam Narrative: Exam Narrative: Vitals at presentation: Pulse Resp
[2020-01-03 13:58] LABS: Glucose Point of Care 294 (65-105)
== END 2020-01-03 15:59 | disposition home or self-care (01) ==
LOC: ANHED 12:39 → ANH3MEDSUR 16:51
PROVIDERS: General Practice; Nurse Practitioner; Admitting Provider Internal Medicine; Emergency Provider Emergency Medicine; Visit Provider Physician Assistant
DX: U07.1 COVID-19 (principal); J12.89 Other viral pneumonia; J45.909 Unspecified asthma, uncomplicated; F32.9 Major depressive disorder, single episode, unspecified; R73.02 Impaired glucose tolerance (oral); R42 Dizziness and giddiness; G89.29 Other chronic pain; M54.9 Dorsalgia, unspecified; W19.XXXA Unspecified fall, initial encounter; Z86.711 Personal history of pulmonary embolism
CPT/HCPCS: 36415; 36600; 70450; 71045; 71275; 73030; 80053; 81001; 82375; 82728; 82805; 83036; 83050; 83605; 83615; 83735; 85025; 85610; 85730; 86140; 87040; 93005; 94618; 94640; 96361; 96372; 96374; 96376; 99285; A9270; G0378; J1100; J1650; J1815; J7030; J7512; Q9967

== ENCOUNTER → 2020-10-20 08:56 | Outpatient (CLI) | payer BC, MEDICARE, SELFPAY ==
--- NOTE | ~2020-10-20 | MR_ITS ---
EXAMINATION: MR lumbar spine wo con DATE: 10/20/2020 09:48 INDICATION: Lumbar radiculopathy. TECHNIQUE: Magnetic resonance imaging (MRI) of the lumbar spine was performed without intravenous con trast. Sequences included sagittal T2-weighted FSE, sagittal T2-weighted FS FSE, sagittal T1-weighted FSE, and axial T2-weighted FSE. COMPARISON: Lumbar spine MRI 04/07/2019 FINDINGS: There is 8 degrees levocurvature of lumbar spine. There is 3 mm retrolisthesis of L1 on L2, L2 on L3, L3 on L4, and L4 on L5. There are changes of anterior fusion procedure at L4-L5 with disce ctomy, interbody bone graft, and anterior plate and screws. There is mild chronic anterior wedging of T12 vertebral body. There is mildly decreased disc height at T12-L1, severely decreased disc height from L1-L2 through L3-L4, and moderately decreased disc height at L5-S1 with endplate remodeling. The distal spinal cord signal intensity is normal. The conus medullaris is at T12-L1. The following disc levels are specifically discussed: L1-L2: The disc is bulging and has an annular fissure. There is mild bilateral facet joint osteoarthr itis. There is moderate bilateral neural foraminal stenosis. There is mild central canal stenosis. L2-L3: The disc is bulging and has an annular fissure. There is mild bilateral facet joint osteoarthr itis. There is moderate bilateral neural foraminal stenosis. There is mild central canal stenosis. L3-L4: The disc is bulging and has an annular fissure. There is mild bilateral facet joint osteoarthr itis. There is moderate bilateral neural foraminal stenosis. There is mild central canal stenosis. L4-L5: There is no facet joint osteoarthritis. There is mild bilateral neural foraminal stenosis. The re is no central canal stenosis. L5-S1: The disc is bulging as an annular fissure. There is moderate bilateral facet joint osteoarthri tis. There is moderate bilateral neural foraminal stenosis. There is mild central canal stenosis. IMPRESSION: 1. Severe lumbar spondylosis, stable from 04/07/2019. 2. Anterior fusion procedure at L4-L5. Reviewed, dictated and finalized at location A.
== END ==
PROVIDERS: Visit Provider Nurse Practitioner Adult Health
DX: M47.26 Other spondylosis with radiculopathy, lumbar region (principal)
CPT/HCPCS: 72148

== ENCOUNTER 2021-10-04 07:22 | Outpatient (CLI) | payer BC, MEDICARE, SELFPAY ==
--- NOTE | ~2021-10-04 | MR_ITS ---
EXAMINATION: MR shoulder RT wo con DATE: 10/04/2021 08:15 INDICATION: Right shoulder pain. TECHNIQUE: Magnetic resonance imaging (MRI) of the right shoulder was performed without intravenous c ontrast. Sequences included axial PD-weighted FS FSE, coronal oblique PD-weighted FS FSE and T2-weigh rodrigo FS FSE, and sagittal oblique T2-weighted FS FSE and T1-weighted FSE. COMPARISON: Right shoulder radiographs 09/17/2021 FINDINGS: Coracoacromial arch: The acromion undersurface is curved in morphology (type II). There is widening of acromioclavicular j oint. Coracoclavicular ligament is normal. There is full-thickness cartilage loss in the acromioclavi cular joint. There is mild subacromial/subdeltoid bursitis. Rotator cuff: There is an articular sided partial-thickness tear of supraspinatus and infraspinatus tendons measuri ng 9 mm anterior to posterior by 5 mm proximal to distal by 30% tendon thickness. Teres minor tendon is normal. There is mild subscapularis tendinopathy. There is mild fatty atrophy of supraspinatus and infraspinatus muscle bellies. Biceps tendon and glenoid labrum: Biceps tendon is in bicipital groove. Intra-articular biceps tendon is normal. The glenoid labrum is normal. Fluid: There is no glenohumeral joint effusion. Bones/cartilage: There is partial-thickness cartilage loss of glenoid and humeral head. Osteophytes are noted. IMPRESSION: 1. Articular-sided partial-thickness tear of supraspinatus and infraspinatus tendons. 2. Mild glenohumeral joint chondrosis. 3. Acromioclavicular separation. 4. Mild subacromial/subdeltoid bursitis. Reviewed, dictated and finalized at location A. IMPRESSION: 1. Articular-sided partial-thickness tear of supraspinatus and infraspinatus te ndons. 2. Mild glenohumeral joint chondrosis. 3. Acromioclavicular separation. 4. Mild subacromial/subdeltoid bursitis.
== END 2021-10-04 07:23 ==
PROVIDERS: Visit Provider Orthopaedic Surgery
DX: M25.511 Pain in right shoulder (principal); M75.51 Bursitis of right shoulder
CPT/HCPCS: 73221

== ENCOUNTER 2022-07-19 15:54 | Emergency (ER) | payer BC, MEDICARE, SELFPAY ==
--- NOTE | 2022-07-19 16:05 | ECG_ITS ---
Measurements Intervals [place] Rate: 54 P: 60 CO: 192 QRS: 48 QRSD: 96 T: 46 QT: 443 QTc: 420 Interpretive Statements SINUS BRADYCARDIA COMPARED TO ECG 01/02/2020 12:17:21 SINUS BRADYCARDIA NOW PRESENT Electronically Signed On 07-20-2022 8:58:19 CDT by Mely Monte M.D.
[2022-07-19 16:19] VITALS: BP 144/78; PULSE 55; RESP 12; TEMP 35.7; O2SAT 98
--- NOTE | 2022-07-19 16:20 | ED.GENADULT ---
HPI - General Adult General Chief complaint: Head Injury Stated complaint: Dizziness/Headache/Right Arm Pain Source: patient Mode of arrival: ambulatory Limitations: no limitations History of Present Illness HPI narrative: Patient is a 57-year-old male that presents with dizziness, headache, right shoulder pain after fall at home. Per patient was walking to the kitchen to get medicine for his headache when he had a syncopal episode. Patient continues to have dizziness and headache. Per patient is slower at answering questions and not always answering appropriately. Denies any nausea or vomiting at this time. Does not have chest pain or shortness of breath. Per patient he does nice any numbness or tingling throughout body. Related Data Home Medications Medication Instructions Recorded Confirmed cetirizine 10 mg tablet (Zyrtec) 10 mg PO DAILY 01/01/20 10/19/21 baclofen 10 mg tablet 10 mg PO QHS 07/26/21 10/19/21 duloxetine 30 mg capsule,delayed 30 mg PO BID 07/26/21 10/19/21 release (Cymbalta) marijuana 07/26/21 10/19/21 pantoprazole 20 mg tablet,delayed 20 mg PO QAM 07/26/21 10/19/21 release pregabalin 300 mg capsule (Lyrica) 300 mg PO BID 07/26/21 10/19/21 montelukast 10 mg tablet 10 mg PO DAILY 09/17/21 10/19/21 Allergies Allergy/AdvReac Type Severity Reaction Status Date / Time Iodinated Contrast Media Allergy Severe SOB, Verified 07/19/22 16:42 THROAT TIGHTNESS, RASH Shrimp Allergy Severe SOB, Uncoded 07/19/22 16:42 THROAT TIGHTNESS, RASH Review of Systems Review of Systems: All systems reviewed & are unremarkable except as noted in HPI and below Constitutional: Constitutional: Denies body ache(s), Denies chills, Denies fatigue, Denies fever(s), Reports headache(s), Denies malaise and Denies weakness Eyes: Eyes: Denies blurry vision, Denies irritation and Denies loss of vision ENT: Denies otalgia, Reports headache(s), Denies nasal discharge, Denies sinus pain and Denies sore throat Cardiovascular: Cardiovascular: Denies chest pain, Denies irregular heart rhythm and Denies dyspnea Respiratory: Respiratory: Denies dyspnea Gastrointestinal: Gastrointestinal: Denies abdominal pain, Denies melena, Denies hematochezia, Denies diarrhea, Denies nausea and Denies vomiting Musculoskeletal: Musculoskeletal: Denies back pain, Denies myalgias and Denies arthralgias Integumentary/Breasts: Skin/Breast: Denies pruritus and Denies rash Neurologic: Reports dizziness, Reports syncope, Reports headache(s), Denies loss of vision and Denies weakness Psychiatric: Psychiatric: Reports no additional psychiatric complaints Endocrine: Endocrine: Denies fatigue [facility] Past Medical History Medical History Asthma Chronic back pain Degenerative disc disease Depression Hypertension Right shoulder pain Surgical History Surgical History H/O left knee surgery Previous back surgery S/P left rotator cuff repair Family History Family History Mother Acute myocardial infarction Asthma Hypertension Sibling Acute myocardial infarction Sibling Acute myocardial infarction Diabetes mellitus Father History of blood clots Colon cancer Prostate carcinoma Social History Social History (Updated 07/26/21 @ 11:21 by Che Canas MA) Social History: The patient had 2 children from a previous and 2 from his current and adopted his knees. His son at the age of 27 with asthma attack. He is currently and lives with his and children. 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 Lifelong nonsmoker. He denies any marijuana alcohol or drug use. 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 Smoking status: Never smoker Second garza
== END 2022-07-19 16:18 | disposition short-term general hospital (02) ==
PROVIDERS: Emergency Provider Nurse Practitioner Family
DX: R55 Syncope and collapse (principal); J45.909 Unspecified asthma, uncomplicated; I10 Essential (primary) hypertension; F32.A Depression, unspecified
CPT/HCPCS: 93005; 99215; G0463

== ENCOUNTER 2022-07-19 16:40 | Observation (INO) | payer BC, MEDICARE, SELFPAY ==
--- NOTE | ~2022-07-19 | MR_ITS ---
MRA OF THE BRAIN INDICATION: Recurrent syncope PROCEDURE: The study consist of multiple vertical and horizontal reconstructive images using informat ion obtained from a 3-D [id number] technique. COMPARISON: MRI dated 07/20/2022 FINDINGS: There is relatively normal and symmetrical flow seen within the anterior cerebral, middle c erebral and posterior cerebral arteries. The flow signals within the intracranial segments of the in ternal carotid arteries and the basilar artery are within normal limits. There are no focal abnormal ities to suggest a hemodynamically significant stenosis or aneurysm about the [place] of [place]. There is a dominant right vertebral artery. IMPRESSION: UNREMARKABLE MR INTRACRANIAL ANGIOGRAPHY STUDY. Reviewed, dictated and finalized at location A.
--- NOTE | ~2022-07-19 | XR_ITS ---
EXAMINATION: XR chest 2V DATE: 07/19/2022 17:15 INDICATION: Transient alteration of awareness TECHNIQUE: PA and lateral views of the chest are obtained. COMPARISON: 01/01/2020 FINDINGS: The lungs are free of acute opacities. No pleural effusion or pneumothorax. Cardiomegaly is noted. There is moderate thoracic spondylosis. There is chronic elevation of the left hemidiaphragm. IMPRESSION: 1. No acute cardiopulmonary abnormality. Reviewed, dictated and finalized at location F.
--- NOTE | ~2022-07-19 | XR_ITS ---
EXAMINATION: XR shoulder RT min 2V INDICATION: Right shoulder pain TECHNIQUE: Four views of the right shoulder are submitted. COMPARISON: 09/17/2021 FINDINGS: Again noted is chronic AC joint separation. There is mild osteoarthritis of the glenohumera l joint. There is no fracture. Soft tissues are unremarkable. IMPRESSION: 1. No acute osseous abnormality. Reviewed, dictated and finalized at location F.
--- NOTE | ~2022-07-19 | CT_ITS ---
EXAMINATION: CT brain wo con INDICATION: Transient alteration of awareness COMPARISON: 01/02/2020 TECHNIQUE: Standard unenhanced head CT. The dose-length product (DLP) was 605.33 mGy-cm. The mA was a djusted according to patient size. Iterative reconstruction technique was employed. FINDINGS: There is no intracranial hemorrhage, acute infarction, or abnormal mass lesion. The ventric les are normal. There is no abnormal mass effect or midline shift. The agustin-white matter differentiat ion is normal. The basal cisterns are patent. The orbits are normal. The paranasal sinuses, mastoids and calvarium are normal. IMPRESSION: 1. No acute intracranial abnormality. Reviewed, dictated and finalized at location F.
--- NOTE | ~2022-07-19 | CT_ITS ---
EXAMINATION: CT cervical spine wo con DATE: 07/19/2022 17:21 INDICATION: Head injury TECHNIQUE: Computed tomography (CT) of the cervical spine was performed without intravenous contrast. The dose-length product (DLP) was 429.80 mGy-cm. Automated exposure control and iterative reconstruc tion technique were employed. COMPARISON: None FINDINGS: There is reversal of the normal cervical lordosis. Bone alignment is normal. There is no fr acture. There is mild loss of intervertebral disc space height from C3-4 through C6-7. The vertebral body heights are maintained. Small degenerative osteophytes project from the anterior endplates of mu ltiple vertebral bodies. The odontoid process is intact. There is multilevel mild facet and uncoverte bral joint osteoarthritis. IMPRESSION: 1. Mild cervical spondylosis without acute findings. Reviewed, dictated and finalized at location F.
--- NOTE | ~2022-07-19 | US_ITS ---
EXAMINATION: US carotid duplex BI DATE: 07/19/2022 22:38 INDICATION: Transient alteration of awareness TECHNIQUE: Grayscale, color Doppler, and pulsed Doppler images of the cervical carotid arteries were obtained. The degree of vessel stenosis is placed in one of the following categories: normal, <50%, 5 0-69%, >=70% but less than near-occlusion, near-occlusion, or total occlusion. Note that percent sten osis relative to normal distal artery lumen diameter is indirectly measured from velocity measurement s as described by Genaro, et al. Radiology 2003; [id number]. COMPARISON: None. FINDINGS: RIGHT: The right common carotid artery (CCA) peak systolic velocity (PSV) is 73 cm/s. The right internal car otid artery (ICA) PSV is 26 cm/s. The right ICA end-diastolic velocity (EDV) is 14 cm/s. The right IC A/CCA PSV ratio is 0.8. Grayscale and color Doppler images yield an estimate of less than 50% diamete r reduction from plaque in the ICA. The external carotid artery (ECA) PSV is 72 cm/s. There is antegr heriberto flow in the right vertebral artery. LEFT: The left CCA PSV is 66 cm/s. The left ICA PSV is 81 cm/s. The left ICA EDV is 23 cm/s. The left ICA/C CA PSV ratio is 1.2. Grayscale and color Doppler images yield an estimate of less than 50% diameter r eduction from plaque in the ICA. The ECA PSV is 62 cm/s. There is antegrade flow in the left vertebra l artery. IMPRESSION: 1. <50% stenosis in the right internal carotid artery. 2. <50% stenosis in the left internal carotid artery. Reviewed, dictated and finalized at location F.
--- NOTE | ~2022-07-19 | MR_ITS ---
EXAMINATION: MR brain/brain stem wo con DATE: 07/20/2022 10:49 CDT INDICATION: CVA. Syncope. Right-sided paresthesias. TECHNIQUE: Magnetic resonance imaging (MRI) of the brain and brainstem was performed without intraven ous contrast. Sequences included sagittal and axial T1-weighted SE, axial diffusion-weighted FS SE, a xial T2*-weighted GRE, axial T2-weighted FLAIR Propeller, and axial T2-weighted Propeller. Apparent d iffusion coefficient (ADC) maps were created. COMPARISON: CT dated 07/19/2022 FINDINGS: The brain volume and ventricular system are within normal limits. The brain parenchymal si gnal intensity pattern and agustin/white matter is normal and there is no evidence of hemorrhage, space occupying masses or infarctions. There are scattered mild periventricular and subcortical white matte r changes, most likely related to small vessel ischemic disease (microangiopathy). The flow signal voids of the major arterial structures about the mechoop[place] of [place] and within the rios r dural venous sinuses appear grossly unremarkable and patent. The seventh and eighth cranial nerve complexes are normal. The mid sagittal image demonstrates a normal craniovertebral junction and dahlia us callosum. The paranasal sinuses are grossly unremarkable. IMPRESSION: 1: No acute intracranial abnormality. 2: Mild chronic age-related findings. Reviewed, dictated and finalized at location A.
[2022-07-19 16:39] VITALS: BP 158/95; PULSE 56; RESP 13; O2SAT 98
--- NOTE | 2022-07-19 16:43 | ECG_ITS ---
Measurements Intervals [place] Rate: 52 P: 47 SD: 166 QRS: 46 QRSD: 95 T: 44 QT: 447 QTc: 419 Interpretive Statements SINUS BRADYCARDIA NONSPECIFIC T-WAVE ABNORMALITY COMPARED TO ECG 07/19/2022 16:15:08 T-WAVE ABNORMALITY NOW PRESENT Electronically Signed On 07-20-2022 8:58:52 CDT by Mely Monte M.D.
[2022-07-19 17:09] LABS: Basophils Percent Auto 0.3 % (0.2-1.2); Eosinophils Absolute Auto 0.1 K/mm3 (0-0.3); Eosinophils Percent Auto 1.1 % (0-4.4); Hemoglobin 13.9 g/dL (14.0-18.0); Immature Granulocyte Absolute 0.03 K/mm3 (0.00-0.031); Immature Granulocyte Percent A 0.3 % (0-0.5); Lymphocytes Absolute Auto 1.61 K/mm3 (0.9-3.2); Lymphocytes Percent Auto 17.5 % (18.3-44.2); Mean Corpuscular HGB Conc 33.9 g/dl (32-36); Mean Corpuscular Hemoglobin 28.6 pg (26-34); Mean Corpuscular Volume 84.4 fl (80-100); Mean Platelet Volume 10.9 fl (7.4-10.4); Monocytes Absolute Auto 0.5 K/mm3 (0.1-0.6); Monocytes Percent Auto 5.1 % (2.6-8.5); Neutrophils Percent Auto 75.7 % (45.5-73.1); Platelet Count Result 231 k/mm3 (150-375); Red Blood Count 4.86 M/mm3 (4.6-6.20); Red Cell Distribution Width 14.6 % (11.5-14.5); White Blood Count 9.2 K/mm3 (4.5-10.0)
[2022-07-19 17:17] LABS: Alanine Aminotransferase 17 U/L (6-50); Albumin Level 4.3 g/dL (3.5-5.1); Alkaline Phosphatase 55 U/L (38-126); Anion Gap 4 mmol/L (8-16); Aspartate Amino Transferase 24 U/L (17-59); Bilirubin,Total 0.9 mg/dL (0.2-1.3); Blood Urea Nitrogen 12 mg/dL (9-20); Calcium 8.6 mg/dL (8.4-10.2); Carbon Dioxide 30 mmol/L (22-30); Chloride 104 mmol/L (98-107); Estimated CRCL calculation 89 ml/min; Estimated Glomerular Filt Rate > 60; Glucose 92 mg/dL (65-110); Potassium 3.8 mmol/L (3.4-5.0); Sodium 138 mmol/L (137-145)
[2022-07-19 17:28] LABS: Troponin I < 0.012 ng/mL (0.000-0.034)
--- NOTE | 2022-07-19 19:08 | ED.SYNCOPE ---
HPI - Syncope General Chief Complaint: Syncope Stated Complaint: FALL/HEAD INURY/SYNCOPY Time Seen by Provider: 07/19/22 16:57 Source: patient and family Mode of arrival: EMS Limitations: no limitations History of Present Illness HPI narrative: Patient is a 57-year-old male who presents the ED via EMS with report of syncopal episodes. at bedside assisted in providing information. Patient was sitting down about to eat lunch around 230pm when he began feeling dizzy. He described the dizziness as though the room was slightly spinning and as though the room was going black. He also complained of a headache at that time. He stood up to go get some Advil when he had a syncopal episode and fell to the ground. He did fall forward, hitting his head and right shoulder. was in the other room, but heard him fall. She took him to urgent care where he then had another syncopal episode while sitting up on the stretcher. This second episode occurred around 4pm. reports he lost consciousness for approximately 30 seconds but was slightly confused disoriented afterwards. EMS was then called to bring patient here. Patient states he feels fine currently, but does admit to some confusion and difficulty recalling the events of today. Patient complains of some pain to his left-sided chest wall which she believes is from the fall. He denies shortness of breath, abdominal pain, vision changes, nausea, vomiting, focal weakness, numbness. Related Data Home Medications Medication Instructions Recorded Confirmed cetirizine 10 mg tablet (Zyrtec) 10 mg PO DAILY 01/01/20 07/20/22 duloxetine 30 mg capsule,delayed 30 mg PO BID 07/26/21 07/20/22 release (Cymbalta) marijuana 07/26/21 07/20/22 pantoprazole 20 mg tablet,delayed 20 mg PO QAM 07/26/21 07/20/22 release pregabalin 300 mg capsule (Lyrica) 300 mg PO BID 07/26/21 07/20/22 acetaminophen 500 mg tablet 1,000 mg PO Q6H PRN Pain (Scale 07/20/22 07/20/22 (Tylenol Extra Strength) Score 4-6) Allergies Allergy/AdvReac Type Severity Reaction Status Date / Time Iodinated Contrast Media Allergy Severe SOB, Verified 07/20/22 01:16 THROAT TIGHTNESS, RASH Shrimp Allergy Severe SOB, Uncoded 07/20/22 01:16 THROAT TIGHTNESS, RASH Review of Systems Review of Systems: CONSTITUTIONAL: Denies fever, chills, or sweats. EYES: Denies visual changes. CARDIOVASCULAR: See HPI. RESPIRATORY: Denies cough or dyspnea. GASTROINTESTINAL: Denies abdominal pain, nausea, vomiting. MUSCULOSKELETAL: See HPI. NEUROLOGIC: See HPI. All systems reviewed & are unremarkable except as noted in HPI and below PMFSH Past Medical History Medical History Asthma Chronic back pain Degenerative disc disease Depression Hypertension Right shoulder pain Surgical History Surgical History H/O left knee surgery Previous back surgery S/P left rotator cuff repair Family History Family History Mother Acute myocardial infarction Asthma Hypertension Sibling Acute myocardial infarction Sibling Acute myocardial infarction Diabetes mellitus Father History of blood clots Colon cancer Prostate carcinoma Social History Social History Social History: The patient had 2 children from a previous and 2 from his current and adopted his knees. His son at the age of 27 with asthma attack. He is currently and lives with his and children. 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 Lifelong nonsmoker. He denies any marijuana alcohol or drug use. 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 Smoking status: Never smoker Second hand tobacco smoke exposure: No
[2022-07-19 19:16] VITALS: BP 137/85; PULSE 47
[2022-07-19 19:17] VITALS: BP 152/96; PULSE 52
[2022-07-19 19:22] VITALS: BP 172/93; PULSE 51
[2022-07-19] MEDS: ACETAMINOPHEN 500 MG TABLET 1000 MG PO (19:41)
[2022-07-19] MEDS: SODIUM CHLORIDE 0.9% IV 1,000 ML 999 ML IV CONT (19:41)
[2022-07-19 20:32] LABS: Troponin I < 0.012 ng/mL (0.000-0.034)
[2022-07-19] MEDS: ASPIRIN 81 MG CHEWABLE TABLET 324 MG PO (21:39)
[2022-07-19 23:22] LABS: Troponin I < 0.012 ng/mL (0.000-0.034)
--- NOTE | 2022-07-19 23:50 | ADMGEN ---
This patient, Gagan Giles, was admitted to Medical Room 343-01. Patient/family oriented to hospital policies and general routines including ID bracelet, bed and alarms, visiting hours, pain management, procedures, bathroom and other care routines, personal items, smoking policy, room service/diet, and visiting hours. Information on how to activate the Rapid Response Team has been discussed. Patient/Family are encouraged to report perceived risks to care and to ask questions if they do not understand what they are told or what they should do.
--- NOTE | 2022-07-20 | ECHO_ITS ---
Patient Info Name: Gagan Giles Age: 57 years : 1965 Gender: Male Ht: 70 in Wt: 250 lbs BSA: 2.41 m2 HR: 45 bpm Heart Rhythm: Sinus Rhythm Technical Quality: Fair Exam Date: 07/20/2022 8:04 AM Exam Location: [facility] Patient Status: Outpatient Admit Date: 07/19/2022 Staff Ordering Physician: Oralia Rowe PA-C Printmaker: Damaris Ferreira RDCS Attending Provider: Nasima Olguin DO Referring Physician: Soledad QUICK; Exam Type: CA echo doppler color flow Study Info Indications - cva w/u Complete two-dimensional, color flow and Doppler transthoracic echocardiogram is performed. Summary 1. Complete two-dimensional, color flow and Doppler transthoracic echocardiogram is performed. 2. Left ventricle not well visualized but appears to have normal size and thickness with grossly normal left ventricular systolic function. Ejection fraction 55-60%. Grossly normal diastolic function. 3. Left atrial chamber dimension is moderately enlarged. 4. No significant valve disease. 5. Pulmonary pressure could not be estimated on this study. 6. Normal sinus rhythm. 7. Technically difficult study. Left Ventricle Left ventricular chamber dimension is normal. Left ventricular systolic function is normal, estimated at 55-60%. There is no increased left ventricular wall thickness. Left ventricular septal wall motion is normal. The left ventricular diastolic function is normal. Right Ventricle Right ventricular chamber dimension is normal. Right ventricular systolic function is normal. Left Atria Left atrial chamber dimension is moderately enlarged. Right Atria Right atrial chamber dimension is normal. Aortic Valve The aortic valve is trileaflet. There is no aortic valve sclerosis. There is no aortic valve stenosis. There is no aortic valve regurgitation. Pulmonic Valve The pulmonic valve is normal. There is no pulmonic valve stenosis. There is no pulmonic regurgitation. Mitral Valve The mitral valve has normal leaflets. There is no mitral valve stenosis. There is no mitral valve regurgitation. Tricuspid Valve The tricuspid valve leaflets are normal. There is no significant tricuspid valve stenosis. There is trace tricuspid valve regurgitation. No pulmonary hypertension, estimated pulmonary arterial systolic pressure is 13 mmHg. Pericardium/Pleural The pericardium appears normal. There is no pericardial effusion. Inferior Vena Cava Normal inferior vena cava with >50% collapse upon inspiration consistent with Empty right atrial pressure, 10 mmHg. Aorta The aortic root size at the sinus of Valsalva is normal. The prox ascending aorta size is normal. Left Ventricular Outflow Tract Name Value Normal LVOT 2D LVOT Diameter 2.3 cm LVOT Doppler LVOT Peak Gradient 4 mmHg LVOT Mean Gradient 2 mmHg LVOT VTI 26 cm LVOT VTI/AV VTI Ratio 0.8 LVOT Stroke Volume 104 ml LVOT CO 4.8 l/min LVOT CI 2.0 l/min/m2 Pulmonic Valve
[2022-07-20 00:04] VITALS: BMI 36.0
[2022-07-20 00:05] VITALS: BP 124/68; PULSE 55; RESP 18; TEMP 36.2; O2SAT 99
[2022-07-20 04:00] VITALS: PULSE 57
[2022-07-20 04:36] VITALS: BP 114/66; PULSE 52; RESP 14; TEMP 36.5; O2SAT 97
--- NOTE | 2022-07-20 07:06 | PM.IMHP ---
H&P: HPI History of Present Illness Date/Time: 07/20/22 01:30 Chief Complaint: Passed out twice Narrative: 57-year-old male with past medical history of obesity, untreated obstructive sleep apnea, essential hypertension, diet-controlled diabetes mellitus who presented to the ER via EMS from urgent care after having 2 episodes of syncope. The patient cannot remember much of the details regarding the events prior to admission. Thus a good portion of details were obtained from the ER documentation. The patient states that he was going to sit down the lunch but had been having headache for about an hour. A reported headache was frontal and posterior in nature. It was around 14:30. He felt lightheaded. He stood up to go get some ibuprofen to treat his headache and when he did he passed out. He fell and hit his head in his right shoulder. He did have some chest discomfort after he woke up but they discomfort was reproducible. She took him to the urgent care and while on the urgent care while he was sitting on the stretcher he then had another syncopal episode that lasted around 30 seconds. The 2nd episode occurred around 16:00. He loss consciousness or about 30 seconds each time. He was slightly confused afterwards but return to his normal mental status quickly. The patient denies any palpitations or shortness of breath. He is not having any chest comfort at this time. He denies any dyspnea on exertion, lower extremity swelling, palpitations, orthopnea or her recent changes in medications. He denies any nausea, vomiting or abdominal pain. He reports he has been eating and drinking well. Initially he had reported no focal weakness or numbness. However when they were doing the neurologic exam in the ER the patient was having difficulty with heel to esquivel and he reported that his right arm and leg had decreased sensation. Whenever provider with pinch the patient he did not have his sharp of sensation. However by the time of my evaluation the symptoms had resolved. He was able to do [id number] without difficulty as time my evaluation. He had no localizing pronator drift, [id number] is intact. Cranial nerves were grossly intact. Denies any vision changes. He had never had symptoms like this before. Although he did report that he has been having some mild increased frequency of headaches recently. He does have a history of migraines listed under is history but he denies ever being labeled with migraines. The patient had a iodine contrast allergy listed under his allergies. However the patient denies actually ever having IV contrast in the past. He does state that he has a allergy to shrimp. Due to having the IV contrast allergy listed the patient did not receive his CTA in the ER. He his non contact CT of the head that was unremarkable. He also had a shoulder x-ray, chest x-ray and cervical spine CT that was negative for acute process. His EKG in the ER demonstrated sinus bradycardia. The patient reports that his baseline heart rate is usually between 60 and 70 according to his fit bit. He does not check his blood pressures very often but states that his blood pressures are usually in the 130s over 80s when he does checked them. He used to be on antihypertensive several years ago but changes diet had not needed antihypertensive since then. He denies any history of peripheral neuropathy. He does still snore but thought that he did not need is CPAP anymore due to changing his diet and losing a little bit of weight. He states that he he has not used his CPAP since before the recall. He does still have excessive daytime sleepiness, snoring and daytime fatigue. Orthostatic vital signs were performed in the ER and the patient actually had elevated blood pressure with position changes. His heart rate did not change with position changes. Review of Systems Review of Systems: 12 systems were reviewed with pertinent positives and negatives per HPI.
[2022-07-20 08:00] VITALS: PULSE 46
[2022-07-20 09:14] LABS: Hematocrit 41.3 % (42.0-52.0); Hemoglobin 13.6 g/dL (14.0-18.0)
[2022-07-20 09:26] LABS: Iron 63 ug/dL (49-181)
[2022-07-20] MEDS: PREGABALIN (*CRX) 75 MG CAPSULE 300 MG PO (09:30)
[2022-07-20] MEDS: ENOXAPARIN 40 MG/0.4 ML SYRINGE SUB-Q (09:30)
[2022-07-20] MEDS: DULoxetine HCL 30 MG CAPSULE.DR PO (09:30)
[2022-07-20] MEDS: PANTOPRAZOLE SOD SESQUIHYDRATE 20 MG TAB PO (09:30)
[2022-07-20] MEDS: LORATADINE 10 MG TABLET PO (09:30)
[2022-07-20 09:31] LABS: CRP < 0.5 mg/dL (<1.0)
[2022-07-20 09:35] LABS: Percent Iron Saturation 21 % (20-50)
[2022-07-20 09:57] LABS: Thyroid Stimulating Hormone Reflex 0.577 uIU/mL (0.465-4.68)
--- NOTE | 2022-07-20 11:22 | WPDNEURCNPN ---
Assessment and Plan Assessment and plan (1) Syncope and collapse: Code(s): R55 - Syncope and collapse Status: Acute (2) Right leg paresthesias: Code(s): R20.2 - Paresthesia of skin Status: Acute (3) Bradycardia: Code(s): R00.1 - Bradycardia, unspecified Status: Acute (4) Arm paresthesia, right: Code(s): R20.2 - Paresthesia of skin Status: Acute (5) Obstructive sleep apnea: Code(s): G47.33 - Obstructive sleep apnea (adult) (pediatric) Status: Acute (6) Diet-controlled diabetes mellitus: Code(s): E11.9 - Type 2 diabetes mellitus without complications Status: Acute (7) Hypertension: Qualifiers: Hypertension type: primary hypertension Qualified Code(s): I10 - Essential (primary) hypertension Code(s): I10 - Essential (primary) hypertension Status: Acute Assessment and Plan: Mr. Giles is a 57 year old male with a history of DM, HTN, HLD presenting due to recurrent episodes of syncope. He has had unrevealing MRI brain and carotid doppler study. Only significant finding has been borderline bradycardia with HR in the 50s. Could be cardiogenic in etiology. Will need intracranial vessel imaging to rule out vertebrobasilar insufficiency as cause of syncope. Etiology of focal symptoms is unclear, could be TIA as MRI is negative - Start daily aspirin - MRA brain without contrast - Will check LDL and A1c Consult date: 07/20/22 Reason for consult: Syncope HPI: Gagan Giles is a 57 year old male with a history of hypertension, diabetes and EMILEE presenting due to syncope. On the day of presentation he started feeling lightheaded with a headache while eating lunch. He stood up to get ibuprofen for his headache but then fainted. He fell, and hit his head and his right shoulder. He reported some chest discomfort shortly afterwards. He went to urgent care and while sitting in the stretcher he had another syncopal episode where he lost consciousness for about thirty seconds. He was slightly confused afterwards but did return to his baseline mental status quickly. He did not have any preceding palpitations, chest pain or shortness of breath. Due to concerns for persistent syncope, he was transferred to [facility]. On presentation his blood pressure was in the 140s-150s. His EKG showed sinus bradycardia with the heart rate in the 50s. Per ED documentation, patient was somewhat confused and slower to answer. He also had some coordination issues on the right side and some paraesthesias in the RUE and RLE as well. He had a CT head which did not show any evidence of acute process. He could not get a CTA due to history of contrast allergy. He does not take any Aspirin. He had orthostatics checked and did not have any positional hypotension. MRI brain has been completed which showed no acute abnormalities. Carotid Doppler showed <50% stenosis bilaterally. Echocardiogram is pending. He has not had any intracranial vessel imaging. Review of Systems Constitutional: Constitutional: Denies chills, Denies fever(s) and Denies weight loss Eyes: Eyes: Denies diplopia and Denies loss of vision ENT: Denies dizziness, Denies hearing loss and Denies tinnitus Cardiovascular: Cardiovascular: Denies chest pain, Reports syncope and Denies dyspnea Respiratory: Respiratory: Denies cough, Denies dyspnea and Denies wheezing Gastrointestinal: Gastrointestinal: Denies abdominal pain, Denies change in bowel habits and Denies vomiting Genitourinary: Genitourinary: Denies urinary incontinence Musculoskeletal: Musculoskeletal: Denies arthralgias, Denies joint swelling and Reports neck pain Integumentary/Breasts: Skin/Breast: Denies new lesions and Denies rash Neurologic: Reports as per HPI, Denies dizziness, Denies syncope and Denies loss of vision Psychiatric: Psychiatric: Denies anxiety and Denies depression Endocrine: Endocrine: Denies cold intolerance and Monty
[2022-07-20 11:54] LABS: Hemoglobin A1C 6.2 % (<5.7)
[2022-07-20 12:00] LABS: LDL Cholesterol Direct 115 mg/dL
--- NOTE | 2022-07-20 13:48 | PM.IMPN ---
Progress Note: A&P Assessment and Plan (1) Syncope and collapse: Code(s): R55 - Syncope and collapse Status: Acute Assessment and Plan: With right leg incoordination following episode some concern for TIA however carotid Doppler MRA of brain and MRI of brain are all normal. With bradycardia and symptoms preceding the syncope there is more concern for cardiac etiology, however so far telemetry has been unremarkable. Echocardiogram is pending and if unremarkable well anticipate discharge home with light activity only and follow-up with them 1 week with primary care physician, Dr. 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 (2) Hypertension: Qualifiers: Hypertension type: primary hypertension Qualified Code(s): I10 - Essential (primary) hypertension Code(s): I10 - Essential (primary) hypertension Status: Acute Assessment and Plan: Currently normotensive (3) Diet-controlled diabetes mellitus: Code(s): E11.9 - Type 2 diabetes mellitus without complications Status: Acute Assessment and Plan: Well controlled with hemoglobin A1c at 6.2 (4) Obstructive sleep apnea: Code(s): G47.33 - Obstructive sleep apnea (adult) (pediatric) Status: Acute Assessment and Plan: Symptoms have improved with healthy diet and weight loss without use of CPAP Subjective Date/time seen: 07/20/22 13:48 Interval history: Follow-up for 2 syncopal episodes with a 2nd involving mild incoordination on the right lower extremity for few minutes afterwards. Preceded by headache. Currently with no complaints or deficits. No headache. No visual auditory weakness numbness incoordination dizziness heart palpitations chest pain shortness of breath swelling GI or issues. No abnormal bleeding. Wants to go home. Spouse is at bedside. Review of Systems Review of Systems: All systems reviewed & are unremarkable except as noted in HPI and below Exam Narrative: HEENT: EOMI, PERRL, sclerae nonicteric, pharyngeal mucosa pink and intact NECK: No JVD, adenopathy, or thyromegaly CHEST: Clear to auscultation. Normal effort. HEART: NL S1/S2, regular, no murmur ABDOMEN: BS+, soft, nontender, no mass, no bruits EXTREMITIES: No cyanosis, edema, or clubbing NEUROLOGIC: CN intact and symmetric to inspection. Tone and strength symmetric at with crypts dorsiflexion and plantar flexion. Finger-nose and heel to esquivel intact. MUSCULOSKELETAL: No deformities noted PSYCH: Alert. Oriented to person, place, and time. Objective Data Vital Signs Vital Signs: Vital Signs - 24 hr 07/19/22 16:39 07/19/22 19:16 07/19/22 19:22 Temperature Pulse Rate 56 L 47 L 51 L Respiratory Rate 13 Blood Pressure 158/95 H 137/85 172/93 H Pulse Oximetry 98 Oxygen Delivery Room Air 07/19/22 19:17 07/20/22 00:05 07/20/22 04:36 Temperature 97.1 F L 97.7 F Pulse Rate 52 L 55 L 52 L Respiratory Rate 18 14 Blood Pressure 152/96 H 124/68 114/66 Pulse Oximetry 99 97 Oxygen Delivery 07/20/22 04:00 07/20/22 05:18 07/20/22 08:00 Temperature Pulse Rate 57 L 46 L Respiratory Rate Blood Pressure Pulse Oximetry Oxygen Delivery Room Air Intake/Output Intake/Output: Intake & Output 07/17/22 07/18/22 07/19/22 07/20/22 23:59 23:59 23:59 23:59 Intake Total 1000 831 Balance 1000 831 Meds/Results Medications: Active Medications Generic Name Dose Route Start Last Admin Trade Name Freq PRN Reason Stop Dose Admin Acetaminophen 1,000 mg 07/20/22 07:33 Acetaminophen 500 Mg Tablet PO Q6H PRN Pain (Scale Score 4-6) Duloxetine HCl 30 mg 07/20/22 09:00 07/20/22 09:30 Duloxetine Hcl 30 Mg Capsule.Dr PO 30 mg BID ARIANNA Administration Enoxaparin Sodium 40 mg 07/20/22 09:00 07/20/22 09:30 Enoxaparin 40 Mg/0.4 Ml Syringe SUB-Q 40 mg DAILY ARIANNA Administration Loratadine 10 mg 07/20/22 09:00 07/20/22 09:30 Loratadine 10
[2022-07-20 14:00] VITALS: BP 131/62; PULSE 70; RESP 16; TEMP 36.6; O2SAT 98
[2022-07-20 16:00] VITALS: PULSE 64
--- NOTE | 2022-07-20 16:22 | PM.DS ---
DS: Admitting Diagnosis Discharge Date 07/20/2022 Admitting Diagnosis Syncope DS: Discharge Diagnosis Discharge Diagnosis (1) Syncope and collapse: Code(s): R55 - Syncope and collapse Status: Acute Assessment and Plan: With right leg incoordination following episode some concern for TIA however carotid Doppler MRA of brain and MRI of brain are all normal. With bradycardia and symptoms preceding the syncope there is more concern for cardiac etiology, however telemetry was remarkable only for sinus bradycardia as low as 40s. Echocardiogram: ?1. Complete two-dimensional, color flow and Doppler transthoracic echocardiogram is performed. ? 2. Left ventricle not well visualized but appears to have normal size and thickness with grossly normal left ventricular systolic function.? Ejection fraction 55-60%.? Grossly normal diastolic function. ? 3. Left atrial chamber dimension is moderately enlarged. ? 4. No significant valve disease. ? 5. Pulmonary pressure could not be estimated on this study. ? 6. Normal sinus rhythm. ? 7. Technically difficult study. Started EC ASA 81mg daily at discharge Recommended outpatient cardiac monitoring No driving or other potentially hazardous activities and no more than light physical exertion until released by his primary physician Return to ED for recurrent symptoms (2) Hypertension: Qualifiers: Hypertension type: primary hypertension Qualified Code(s): I10 - Essential (primary) hypertension Code(s): I10 - Essential (primary) hypertension Status: Acute Assessment and Plan: Currently normotensive (3) Diet-controlled diabetes mellitus: Code(s): E11.9 - Type 2 diabetes mellitus without complications Status: Acute Assessment and Plan: Well controlled with hemoglobin A1c at 6.2 (4) Obstructive sleep apnea: Code(s): G47.33 - Obstructive sleep apnea (adult) (pediatric) Status: Acute Assessment and Plan: Symptoms have improved with healthy diet and weight loss without use of CPAP DS: Summary Hospital Course Reason for hospitalization: Syncope Hospital Course: Admitted after 2 episodes of syncope on 07/19/2022. Both persisted for about 30 seconds or less. No postictal phase. No loss of continence. No tongue biting. Did fall and land on his right shoulder during the 1st episode. First episode occurred about 2:30 p.m. while having lunch. He got up to get some ibuprofen for a headache. He felt dizzy sitting at the table and when he got up he passed out and fell to the floor. The dizziness was described as lightheadedness with mild tunnel vision. Second episode occurred at around 4:00 p.m. while at Urgent Care. This seems to be while seated although it is unclear whether he was trying to get up. After the 2nd episode he does experience some tingling in the right arm and leg and had mild dysmetria of the right leg on [id number] testing. He was transferred to the emergency room. There, he received ASA 324 mg PO. He had and negative CT of the brain, MRA of the brain, MRI of the brain, EKG, chest x-ray, troponin, CMP and CBC, TSH, CRP, iron panel. Echocardiogram was suboptimal but did reveals some left atrial enlargement without evidence for LVH or diastolic dysfunction. He was seen in consultation by Neurology. Examination was unremarkable while on the medical floor. Telemetry revealed sinus bradycardia as low as the 40s with no evidence for AV block and no noted dysrhythmia. He was asymptomatic during hospitalization. Blood pressure was a bit elevated at admission in the 150-170 range systolic but remained normotensive after that. He tolerated his diet and was up and about independently. Time Spent with Patient Time attestation: Total time spent providing and/or coordinating discharge services: Exam Narrative: HEENT: EOMI, PERRL, sclerae nonicteric, pharyngeal mucosa pink and intact NECK: No JVD, lisa
== END 2022-07-20 17:30 | disposition home or self-care (01) ==
LOC: ANHED 17:36 → ANH3MED 07-20 01:45
PROVIDERS: Emergency Medicine; Student in an Organized Health Care Education/Training Program; Admitting Provider Internal Medicine; Emergency Provider Physician Assistant; Visit Provider Internal Medicine
DX: R55 Syncope and collapse (principal); I10 Essential (primary) hypertension; E11.9 Type 2 diabetes mellitus without complications; G47.33 Obstructive sleep apnea (adult) (pediatric); R20.2 Paresthesia of skin; R00.1 Bradycardia, unspecified; S09.90XA Unspecified injury of head, initial encounter; R41.0 Disorientation, unspecified; J45.909 Unspecified asthma, uncomplicated; M47.812 Spondylosis without myelopathy or radiculopathy, cervical region; G89.29 Other chronic pain; M54.9 Dorsalgia, unspecified; M25.511 Pain in right shoulder; R94.31 Abnormal electrocardiogram [ECG] [EKG]; F32.A Depression, unspecified; E66.9 Obesity, unspecified; Z68.36 Body mass index [BMI] 36.0-36.9, adult; F10.90 Alcohol use, unspecified, uncomplicated; F12.90 Cannabis use, unspecified, uncomplicated; Z79.1 Long term (current) use of non-steroidal anti-inflammatories (NSAID); Z79.899 Other long term (current) drug therapy; Z82.49 Family history of ischemic heart disease and other diseases of the circulatory system
CPT/HCPCS: 36415; 70450; 70544; 70551; 71046; 72125; 73030; 80053; 83036; 83540; 83550; 83721; 84443; 84484; 85014; 85018; 85025; 86140; 93005; 93306; 93880; 96360; 96372; 99285; A9270; G0378; J1650; J7030

== ENCOUNTER 2022-08-08 08:16 | Emergency (ER) | payer BC, MEDICARE, SELFPAY ==
[2022-08-08 08:31] VITALS: BP 148/87; PULSE 61; RESP 16; TEMP 36.6; O2SAT 99
--- NOTE | 2022-08-08 08:46 | ED.EXTPRO ---
HPI - Extremity Problem General Chief complaint: Extremity Injury, Lower Stated complaint: Left Foot Pain Time Seen by Provider: 08/08/22 08:38 Source: patient and RN notes reviewed Mode of arrival: ambulatory Limitations: no limitations History of Present Illness HPI Narrative: Patient presents today complaining of left foot pain x4 days. Denies injury or trauma. Denies numbness. Reports tingling to the 1st toe. Currently rates his pain 4/10 at rest, which increases to 10/10 with weight-bearing. History of diet-controlled diabetes. No history of gout. Related Data Home Medications Medication Instructions Recorded Confirmed cetirizine 10 mg tablet (Zyrtec) 10 mg PO DAILY 01/01/20 08/08/22 duloxetine 30 mg capsule,delayed 30 mg PO BID 07/26/21 08/08/22 release (Cymbalta) marijuana 07/26/21 08/08/22 pantoprazole 20 mg tablet,delayed 20 mg PO QAM 07/26/21 08/08/22 release pregabalin 300 mg capsule (Lyrica) 300 mg PO BID 07/26/21 08/08/22 acetaminophen 500 mg tablet 1,000 mg PO Q6H PRN Pain (Scale 07/20/22 08/08/22 (Tylenol Extra Strength) Score 4-6) Allergies Allergy/AdvReac Type Severity Reaction Status Date / Time Shrimp Allergy Severe SOB, Uncoded 08/08/22 08:30 THROAT TIGHTNESS, RASH Review of Systems Review of Systems: CONSTITUTIONAL: Denies body aches, fever, chills, or sweats. EYES: Denies visual changes, redness, or discharge. ENT: Denies rhinorrhea, congestion, sore throat, or otalgia. CARDIOVASCULAR: Denies chest pain, palpitations, or edema. RESPIRATORY: Denies cough or dyspnea. GASTROINTESTINAL: Denies abdominal pain, nausea, vomiting, or diarrhea. GENITOURINARY: Denies dysuria or hematuria. SKIN: Denies rash, itching, or wounds. MUSCULOSKELETAL: Denies back pain, or myalgia.+ left foot pain NEUROLOGIC: Denies headache, numbness, tingling, or weakness. PSYCH: Denies depression or anxiety. [facility] Past Medical History Medical History Asthma Chronic back pain Low back pain Degenerative disc disease Depression Hypertension Obstructive sleep apnea Not using CPAP Type 2 diabetes mellitus Hemoglobin A1c 6.8 in 2020 Surgical History Surgical History History of arthroscopy of left knee Previous back surgery Lumbar fusion L4 through S1 S/P left rotator cuff repair Family History Family History Mother Acute myocardial infarction Asthma Hypertension Sibling Acute myocardial infarction Sibling Acute myocardial infarction Diabetes mellitus Father History of blood clots Colon cancer Prostate carcinoma Social History Social History Social History: The patient had 2 children from a previous and 2 from his current and adopted his nieces. His son at the age of 27 with asthma attack. He is currently and lives with his and children. 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 Lifelong nonsmoker. He denies any marijuana alcohol or drug use. The patient desires to be full code and his is a durable power patent prosecution attorney for healthcare. Smoking status: Never smoker Second hand tobacco smoke exposure: No Alcohol intake: current Drinks per week: 1 Alcohol use details: occasionally Substance use: current Substance use type: marijuana Lack of Transportation: No Lack of Food: Never True Current Housing: I Have Housing Concerned About Future Housing: No Difficulty Paying Gas/Electric Bills: No Difficulty Paying for Meds: No Currently Unemployed: No Education: Bachelor's Degree Difficulty w/ Childcare or Family Care: No Living arrangements: with family Gender identity (if verbalized by the patient): Male Spiritual care concerns: No Comm
== END 2022-08-08 08:57 | disposition home or self-care (01) ==
PROVIDERS: Emergency Provider Nurse Practitioner
DX: M10.9 Gout, unspecified (principal); F12.90 Cannabis use, unspecified, uncomplicated; J45.909 Unspecified asthma, uncomplicated; I10 Essential (primary) hypertension; E11.9 Type 2 diabetes mellitus without complications; F32.9 Major depressive disorder, single episode, unspecified
CPT/HCPCS: 99213; G0463

== ENCOUNTER 2023-11-20 18:24 | Emergency (ER) | payer OTHER, MEDICARE, SELFPAY ==
--- NOTE | ~2023-11-20 | XR_ITS ---
CHEST RADIOGRAPH, PA AND LATERAL CLINICAL HISTORY: cough fever x2 days dizzy . COMPARISON: 07/19/2022 TECHNIQUE: PA and lateral views of the chest. FINDINGS The cardiomediastinal silhouette is partially obscured. Elevation of the left hemidiaphragm with adjacent compressive atelectasis. The remainder of the lungs are clear. Air opacified bowel projecting over the left hemidiaphragm, unchanged from prior. Visualized osseous structures and soft tissues are unremarkable. IMPRESSION: Elevation of the left hemidiaphragm with adjacent compressive atelectasis, however, without focal inf iltrate or effusion. Reviewed, dictated and finalized at location A. IMPRESSION: Elevation of the left hemidiaphragm with adjacent compressive atelectasis, garcía bernardino, without focal infiltrate or effusion.
[2023-11-20 18:52] VITALS: BP 168/81; PULSE 87; RESP 15; TEMP 38.4; O2SAT 98
--- NOTE | 2023-11-20 19:07 | ED.URI ---
HPI - URI/Sore Throat General Chief Complaint: Upper Respiratory Infection Stated Complaint: cough,chills,throat sore Time Seen by Provider: 11/20/23 19:08 Source: patient, RN notes reviewed and old records reviewed Mode of arrival: ambulatory Limitations: no limitations History of Present Illness HPI Narrative: 58-year-old male presents to the [facility] with complaints of cough, chills, sore throat that started on Friday, 2 days ago. Has taken [id number] cold medication. Patient currently 101.2 in clinic, treated with Tylenol in clinic Onset (ago): day(s) (2) Severity: moderate Treatments prior to arrival: cold medicine Related Data Home Medications Medication Instructions Recorded Confirmed cetirizine 10 mg tablet (Zyrtec) 10 mg PO DAILY 01/01/20 11/20/23 duloxetine 30 mg capsule,delayed 30 mg PO BID 07/26/21 11/20/23 release (Cymbalta) marijuana 07/26/21 08/08/22 pantoprazole 20 mg tablet,delayed 20 mg PO QAM 07/26/21 11/20/23 release pregabalin 300 mg capsule (Lyrica) 300 mg PO BID 07/26/21 11/20/23 ibuprofen 800 mg tablet 800 mg DIRECTED 11/20/23 11/20/23 montelukast 10 mg tablet 10 mg DIRECTED 11/20/23 11/20/23 Allergies Allergy/AdvReac Type Severity Reaction Status Date / Time Shrimp Allergy Severe SOB, Uncoded 08/08/22 08:30 THROAT TIGHTNESS, RASH Review of Systems Review of Systems: All systems reviewed & are unremarkable except as noted in HPI and below Constitutional: Constitutional: Reports as per HPI, Reports body ache(s), Reports chills, Reports fatigue, Reports fever(s) and Reports lethargy Eyes: Eyes: Reports no additional eye complaints ENT: Reports as per HPI and Reports sore throat Cardiovascular: Cardiovascular: Reports no additional cardiovascular complaints, Denies chest pain and Denies dyspnea Respiratory: Respiratory: Reports as per HPI, Reports chest congestion, Reports cough and Denies dyspnea Gastrointestinal: Gastrointestinal: Reports no additional gastrointestinal complaints, Denies abdominal pain, Denies nausea and Denies vomiting Musculoskeletal: Musculoskeletal: Reports no additional musculoskeletal complaints Integumentary/Breasts: Skin/Breast: Reports system reviewed and no additional complaints, except as docu Neurologic: Reports system reviewed and no additional complaints, except as documented Psychiatric: Psychiatric: Reports no additional psychiatric complaints Allergic/Immunologic: Allergic/Immunologic: Reports no additional allergic/immunologic complaints PMFSH Past Medical History Medical History Asthma Chronic back pain Low back pain Degenerative disc disease Depression Hypertension Obstructive sleep apnea Not using CPAP Type 2 diabetes mellitus Hemoglobin A1c 6.8 in 2019 Surgical History Surgical History History of arthroscopy of left knee Previous back surgery Lumbar fusion L4 through S1 S/P left rotator cuff repair Family History Family History Mother Acute myocardial infarction Asthma Hypertension Sibling Acute myocardial infarction Sibling Acute myocardial infarction Diabetes mellitus Father History of blood clots Colon cancer Prostate carcinoma Social History Social History Social History: The patient had 2 children from a previous and 2 from his current and adopted his nieces. His son at the age of 27 with asthma attack. He is currently and lives with his and children. 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 Lifelong nonsmoker. He denies any marijuana alcohol or drug use. The patient desires to be full code and his is a durable power corporate associate attorney for healthcare. Smoking status: Never smoker Second hand tobacco smo
[2023-11-20 19:12] VITALS: TEMP 38.4
[2023-11-20] MEDS: ACETAMINOPHEN 500 MG TABLET 1000 MG PO (19:12)
[2023-11-20 19:17] LABS: EDCOVIDSCREEN Negative (Negative)
[2023-11-20 19:18] LABS: EDINFLUASCREEN Negative (Negative); EDINFLUBSCREEN Negative (Negative); EDSTREPNEGPOS1 Negative (Negative)
[2023-11-20 19:53] VITALS: PULSE 89; TEMP 39.4; O2SAT 94
[2023-11-20 20:12] VITALS: TEMP 38.3
== END 2023-11-20 20:12 | disposition home or self-care (01) ==
PROVIDERS: Emergency Provider Nurse Practitioner; PCP Family Medicine
DX: J20.9 Acute bronchitis, unspecified (principal); Z20.822 Contact with and (suspected) exposure to COVID-19; J45.909 Unspecified asthma, uncomplicated; I10 Essential (primary) hypertension; E11.9 Type 2 diabetes mellitus without complications; G47.33 Obstructive sleep apnea (adult) (pediatric); Z91.199 Patient's noncompliance with other medical treatment and regimen due to unspecified reason
CPT/HCPCS: 71046; 87081; 87426; 87804; 87880; 99213; A9270; G0463

== ENCOUNTER 2023-12-19 12:23 | Emergency (ER) | payer OTHER, MEDICARE, SELFPAY ==
--- NOTE | ~2023-12-19 | CT_ITS ---
Non-contrast Head CT History: Syncope COMPARISON: 07/19/2022 Technique: Axial non-contrast imaging of the brain was performed. Dose reduction technique was used on this scan by utilizing automated exposure control and iterative reconstruction technique. The dose -length product (DLP) was 605.33 mGy-cm. Findings: There is no evidence of intracranial hemorrhage, mass lesion, or acute infarct. Brain par enchyma appears normal. The ventricles and subarachnoid spaces are normal in size. The calvarium ap pears normal. The visualized paranasal sinuses and mastoid air cells are clear. Impression: No significant abnormality seen. Reviewed, dictated and finalized at location . CTOR WEB Impression: No significant abnormality seen.
--- NOTE | ~2023-12-19 | XR_ITS ---
Clinical Indication: Syncope PA view of the chest: Comparison: 11/20/2023 Findings: The lungs are clear, without evidence of focal consolidation or pleural effusion. Stable ev entration of left hemidiaphragm. Cardiomediastinal silhouette is within normal limits. Bones and soft tissues are unremarkable. Impression: No acute abnormality. Reviewed, dictated and finalized at location . SERVICES MANAGER Impression: No acute abnormality.
[2023-12-19 12:22] VITALS: BP 157/84; PULSE 63; RESP 18; TEMP 36.8; O2SAT 97
[2023-12-19 13:30] VITALS: BP 138/87; PULSE 62; RESP 13; O2SAT 95
--- NOTE | 2023-12-19 13:38 | ECG_ITS ---
Test Date: 2023-12-19 14:04:22 Measurements Intervals [place] Rate: 58 P: 52 OR: 196 QRS: 56 QRSD: 92 T: 29 QT: 433 QTc: 427 Interpretive Statements SINUS BRADYCARDIA MODERATE T WAVE ABNORMALITY IN ANTERIOR LEADS- CONSIDER ISCHEMIA BASELINE ARTIFACT- I, II, AVR ABNORMAL ECG No previous ECG available for comparison Electronically Signed On 12-19-2023 14:28:47 MACHINE INSTALLER by Adama Shell D.O.
--- NOTE | 2023-12-19 13:56 | ED.FALL ---
HPI - Fall General Chief Complaint: Fall Stated Complaint: fall Time Seen by Provider: 12/19/23 13:31 Source: patient Mode of arrival: ambulatory Limitations: no limitations History of Present Illness HPI Narrative: 58-year-old male hypertension presenting for syncopal episode today. 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 He then set up rapidly and is quite nervous and then got lightheaded, nauseated and had a syncopal episode. Lasted a few seconds. Now he feels a lot better. Blood pressure it seems to be much better in control at this point. He has no complaints currently. Related Data Home Medications Medication Instructions Recorded Confirmed cetirizine 10 mg tablet (Zyrtec) 10 mg PO DAILY 01/01/20 11/20/23 duloxetine 30 mg capsule,delayed 30 mg PO BID 07/26/21 11/20/23 release (Cymbalta) marijuana 07/26/21 08/08/22 pantoprazole 20 mg tablet,delayed 20 mg PO QAM 07/26/21 11/20/23 release pregabalin 300 mg capsule (Lyrica) 300 mg PO BID 07/26/21 11/20/23 ibuprofen 800 mg tablet 800 mg DIRECTED 11/20/23 11/20/23 montelukast 10 mg tablet 10 mg DIRECTED 11/20/23 11/20/23 Allergies Allergy/AdvReac Type Severity Reaction Status Date / Time Shrimp Allergy Severe SOB, Uncoded 08/08/22 08:30 THROAT TIGHTNESS, RASH Review of Systems Review of Systems: All systems reviewed & are unremarkable except as noted in HPI and below PMFSH Past Medical History Medical History Asthma Chronic back pain Low back pain Degenerative disc disease Depression Hypertension Obstructive sleep apnea Not using CPAP Type 2 diabetes mellitus Hemoglobin A1c 6.8 in 2019 Surgical History Surgical History History of arthroscopy of left knee Previous back surgery Lumbar fusion L4 through S1 S/P left rotator cuff repair Family History Family History Mother Acute myocardial infarction Asthma Hypertension Sibling Acute myocardial infarction Sibling Acute myocardial infarction Diabetes mellitus Father History of blood clots Colon cancer Prostate carcinoma Social History Social History Social History: The patient had 2 children from a previous and 2 from his current and adopted his nieces. His son at the age of 27 with asthma attack. He is currently and lives with his and children. 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 Lifelong nonsmoker. He denies any marijuana alcohol or drug use. 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 Smoking status: Never smoker Second hand tobacco smoke exposure: No Alcohol intake: current Drinks per week: 1 Alcohol use details: occasionally Substance use: current Substance use type: marijuana Lack of Transportation: No Lack of Food: Never True Current Housing: I Have Housing Concerned About Future Housing: No Difficulty Paying Gas/Electric Bills: No Difficulty Paying for Meds: No Currently Unemployed: No Education: Bachelor's Degree Difficulty w/ Childcare or Family Care: No Living arrangements: with family Gender identity (if verbalized by the patient): Male Spiritual care concerns: No Exam Narrative: Constitutional: Generally well appearing, no acute distress Head: Atraumatic, no deformities. Eyes: Pupils equal, round, and reactive to light. Neck: Supple, no tracheal deviation, no JVD. ENMT: Mucous membranes moist Cardiovascular: S1, S2 auscultated. No murmurs, rubs, or gallops. No S3/S4. Normal Distal pulses. No peripheral edema. Respiratory: Lung sounds equal. No wheezes, rales, or rhonchi. Gastrointestinal: Abdomen was soft and non-tender. Non-distended. No rebound or guarding. Genitourinary: Deferred Musculoskeletal: Normal muscle tone and bulk. No obvious deformities or tenderness over extremities. Skin: No rashes. Neurological: Strength 5/5 in extremities. Cranial nerves I-XII grossly intact. Distal sensation intact. Mental Status: Awake, alert and oriented x3. Follows commands Course Vital Signs Vital signs: Vital Signs Temperature 36.8 C 12/19/23 12:22 Pulse Rate 63 12/19/23 12:22 Respiratory Rate 18 12/19/23 12:22 Blood Pressure 157/84 H 12/19/23 12:22 Pulse Oximetry 97 12/19/23 12:22 Oxygen Delivery Room Air 12/19/23 12:22 Temperature 36.8 C 12/19/23 12:22 Pulse Rate 62 12/19/23 13:30 Respiratory Rate 13 12/19/23 13:30 Blood Pressure 138/87 12/19/23 13:30 Pulse Oximetry 95 12/19/23 13:30 Oxygen Delivery Room Air 12/19/23 12:22 MDM - Fall MDM Narrative Medical decision making narrative: 58-year-old here for syncopal episode and hypertension. Has had this happen in the past. Currently appears very well, asymptomatic, blood pressure is much better controlled at this point. Normal neurological cardio respiratory exam. Concern for syncopal episode cause, potentially intracranial pathology, cardiac pathology will be evaluated for both. Workup reviewed showing no focal abnormalities. Patient has been on the monitor and has been stable the entire time he has been here. Vitals have been regular. No obvious source of his syncope but he does not want to stay any further or have a 3 hour troponin drawn. Discussed return precautions and he understands and agrees. Pt feeling improved and would like to go home at this point. Return precautions were given to the patient include any new or worsening symptoms or development of and not limited to any chest pain, shortness of breath, lightheadedness, abdominal pain, fevers, chills. Patient understands and agrees. They are to follow-up with her PCP. All questions were answered. I reviewed the patient's vital signs, history, allergies, and labs and imaging workup. Lab Data 12/19/23 14:04 12/19/23 14:03 Labs: Lab Results 12/19/23 12/19/23 Range/Units 14:03 14:04 WBC 5.6 (4.5-10.0) K/mm3 RBC 4.43 L (4.6-6.20) M/mm3 Hgb 12.5 L (14.0-18.0) g/dL Hct 38.1 L (42.0-52.0) % MCV 86.0 (80-100) fl MCH 28.2 (26-34) pg MCHC 32.8 (32-36) g/dl RDW 13.9 (11.5-14.5) % Plt Count 199 (150-375) k/mm3 MPV 11.3 H (7.4-10.4) fl Immature Gran % (Auto) 0.4 (0-0.5) % Neut % (Auto) 55.8 (45.5-73.1) % Lymph % (Auto) 31.7 (18.3-44.2) % [place] % (Auto) 9.0 H (2.6-8.5) % Eos % (Auto) 2.7 (0-4.4) % Baso % (Auto) 0.4 (0.2-1.2) % Lymph # (Auto) 1.76 (0.9-3.2) K/mm3 [place] # (Auto) 0.5 (0.1-0.6) K/mm3 Eos # (Auto) 0.2 (0-0.3) K/mm3 Baso # (Auto) 0.0 (0.0-0.1) K/mm3 Abs Immat Gran (auto) 0.02 (0.00-0.031) K/mm3 Absolute Neuts (auto) 3.1 (1.3-6.7) K/mm3 Absolute Nucleated RBC 0.000 (0.0-0.012) K/mm3 Nucleated RBC % 0.0 (0.0-0.2) % D-Dimer 0.33 (<0.48) ug/mL Sodium 139 (137-145) mmol/L Potassium 4.0 (3.4-5.0) mmol/L Chloride 103 (98-107) mmol/L Carbon Dioxide 31 H (22-30) mmol/L Anion Gap 5 (4-12) mmol/L BUN 16 (9-20) mg/dL Creatinine 1.00 (0.7-1.3) mg/dL Estim Creat Clear Calc 90 ml/min Estimated GFR > 60 (59 - ) Glucose 95 (65-110) mg/dL Calcium 8.6 (8.4-10.2) mg/dL Magnesium 1.8 (1.6-2.3) mg/dL Total Bilirubin 0.5 (0.2-1.3) mg/dL AST 34 (17-59) U/L ALT 25 (6-50) U/L Alkaline Phosphatase 53 (38-126) U/L Troponin I < 0.012 (0.000-0.034) ng/mL Total Protein 7.0 (6.3-8.2) g/dL Albumin 4.1 (3.5-5.1) g/dL Critical Care Time Critical Care Time Critical Care Time: Yes Total Critical Care Time: 35 Discharge Plan Discharge Clinical Impression: Syncope and collapse Hypertension Qualifiers: Hypertension type: primary hypertension Qualified Code(s): I10 - Essential (primary) hypertension Patient Disposition: Home, Self-Care Condition: Stable Instructions: Antibiotic Form, Syncope (DC), Hypertension (ED) Prescriptions: No Action colchicine 0.6 mg tablet 0.3 mg PO DAILY Qty: 7 0RF ibuprofen 800 mg tablet 800 mg DIRECTED montelukast 10 mg tablet 10 mg DIRECTED doxycycline monohydrate 100 mg tablet 100 mg PO BID Qty: 14 0RF albuterol sulfate 90 mcg/actuation HFA aerosol inhaler 2 puff inhalation QID PRN (Reason: shortness of breath or wheezing) Qty: 6.7 0RF (DME) Aerochamber MV Spacer See Rx Instructions .Route Qty: 1 0RF Rx Instructions: As directed pantoprazole 20 mg tablet,delayed release (DR/EC) 20 mg PO QAM (DME) marijuana 0 .Route .MEDSUPPLY Patient Comments: EDIBLES 5MG THC. TAKEN FOR PAIN AND SLEEP duloxetine [Cymbalta] 30 mg capsule,delayed release(DR/EC) 30 mg PO BID pregabalin [Lyrica] 300 mg capsule 300 mg PO BID cetirizine [Zyrtec] 10 mg Tablet 10 mg PO DAILY Follow-up/Referrals: Beatrice,Daryl Luna MD [Primary Care Provider] - Time of Disposition: 15:21
[2023-12-19] MEDS: SODIUM CHLORIDE 0.9% IV 1,000 ML 999 ML IV CONT ×2 (14:02)
[2023-12-19 14:24] LABS: Basophils Percent Auto 0.4 % (0.2-1.2); Eosinophils Absolute Auto 0.2 K/mm3 (0-0.3); Eosinophils Percent Auto 2.7 % (0-4.4); Hematocrit 38.1 % (42.0-52.0); Hemoglobin 12.5 g/dL (14.0-18.0); Immature Granulocyte Absolute 0.02 K/mm3 (0.00-0.031); Immature Granulocyte Percent A 0.4 % (0-0.5); Lymphocytes Absolute Auto 1.76 K/mm3 (0.9-3.2); Lymphocytes Percent Auto 31.7 % (18.3-44.2); Mean Corpuscular HGB Conc 32.8 g/dl (32-36); Mean Corpuscular Hemoglobin 28.2 pg (26-34); Mean Platelet Volume 11.3 fl (7.4-10.4); Monocytes Absolute Auto 0.5 K/mm3 (0.1-0.6); Neutrophils Absolute Auto 3.1 K/mm3 (1.3-6.7); Neutrophils Percent Auto 55.8 % (45.5-73.1); Platelet Count Result 199 k/mm3 (150-375); Red Blood Count 4.43 M/mm3 (4.6-6.20); Red Cell Distribution Width 13.9 % (11.5-14.5); White Blood Count 5.6 K/mm3 (4.5-10.0)
[2023-12-19 14:30] VITALS: BP 137/88; PULSE 60; RESP 13; O2SAT 100
[2023-12-19 14:47] LABS: D Dimer 0.33 ug/mL (<0.48)
[2023-12-19 14:51] LABS: Alanine Aminotransferase 25 U/L (6-50); Albumin Level 4.1 g/dL (3.5-5.1); Alkaline Phosphatase 53 U/L (38-126); Anion Gap 5 mmol/L (4-12); Aspartate Amino Transferase 34 U/L (17-59); Bilirubin,Total 0.5 mg/dL (0.2-1.3); Blood Urea Nitrogen 16 mg/dL (9-20); Calcium 8.6 mg/dL (8.4-10.2); Carbon Dioxide 31 mmol/L (22-30); Chloride 103 mmol/L (98-107); Estimated CRCL calculation 90 ml/min; Estimated Glomerular Filt Rate > 60; Glucose 95 mg/dL (65-110); Magnesium 1.8 mg/dL (1.6-2.3); Sodium 139 mmol/L (137-145)
[2023-12-19 15:00] VITALS: BP 145/79; PULSE 60; RESP 20; O2SAT 99
[2023-12-19 15:04] LABS: Troponin I < 0.012 ng/mL (0.000-0.034)
== END 2023-12-19 15:54 | disposition home or self-care (01) ==
PROVIDERS: Emergency Provider Emergency Medicine; PCP Family Medicine
DX: R55 Syncope and collapse (principal); I10 Essential (primary) hypertension; J45.909 Unspecified asthma, uncomplicated; G47.33 Obstructive sleep apnea (adult) (pediatric); E11.9 Type 2 diabetes mellitus without complications
CPT/HCPCS: 36415; 70450; 71045; 80053; 83735; 84484; 85025; 85380; 93005; 96360; 99284; J7030

== ENCOUNTER 2024-11-12 12:52 | Emergency (ER) | payer OTHER, MEDICARE, SELFPAY ==
[2024-11-12 13:01] VITALS: BP 145/81; PULSE 54; RESP 16; TEMP 36.4; O2SAT 99
--- NOTE | 2024-11-12 13:05 | ED.URI ---
HPI - URI/Sore Throat General Chief Complaint: Upper Respiratory Infection Stated Complaint: Sore Throat/Sinus Time Seen by Provider: 11/12/24 13:06 Source: patient, RN notes reviewed and old records reviewed Mode of arrival: ambulatory Limitations: no limitations History of Present Illness HPI Narrative: 59-year-old male presents to the [facility] with complaints of sinus congestion, headache, generalized not feeling well since Friday. States it started with a sore throat yesterday. Denies any fevers. States he has taken sinus medication 1 time. Related Data Home Medications ?Medication ?Instructions ?Recorded ?Confirmed ?Last Taken ?Type cetirizine 10 mg tablet (Zyrtec) 10 mg PO DAILY 01/01/20 11/20/23 07/19/22 History duloxetine 30 mg capsule,delayed 30 mg PO BID 07/26/21 11/20/23 07/19/22 History release (Cymbalta) marijuana 07/26/21 08/08/22 Unknown History pantoprazole 20 mg tablet,delayed 20 mg PO QAM 07/26/21 11/20/23 07/19/22 History release pregabalin 300 mg capsule (Lyrica) 300 mg PO BID 07/26/21 11/20/23 07/19/22 History ibuprofen 800 mg tablet 800 mg DIRECTED 11/20/23 11/20/23 Unknown History montelukast 10 mg tablet 10 mg DIRECTED 11/20/23 11/20/23 Unknown History Allergies Allergy/AdvReac Type Severity Reaction Status Date / Time No Known Allergies Allergy Verified 11/12/24 12:54 Review of Systems Review of Systems: All systems reviewed & are unremarkable except as noted in HPI and below Constitutional: Constitutional: Reports no additional constitutional complaints ENT: Reports as per HPI Cardiovascular: Cardiovascular: Reports no additional cardiovascular complaints, Denies chest pain and Denies dyspnea Respiratory: Respiratory: Reports no additional respiratory complaints, Denies chest congestion, Denies cough and Denies dyspnea Musculoskeletal: Musculoskeletal: Reports no additional musculoskeletal complaints Integumentary/Breasts: Skin/Breast: Reports system reviewed and no additional complaints, except as docu PMFSH Past Medical History Medical History Asthma Chronic back pain Low back pain Degenerative disc disease Depression Hypertension Obstructive sleep apnea Not using CPAP Type 2 diabetes mellitus Hemoglobin A1c 6.8 in 2019 Surgical History Surgical History History of arthroscopy of left knee Previous back surgery Lumbar fusion L4 through S1 S/P left rotator cuff repair Family History Family History Mother Acute myocardial infarction Asthma Hypertension Sibling Acute myocardial infarction Sibling Acute myocardial infarction Diabetes mellitus Father History of blood clots Colon cancer Prostate carcinoma Social History Social History Social History: The patient had 2 children from a previous and 2 from his current and adopted his nieces. His son at the age of 27 with asthma attack. He is currently and lives with his and children. 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 Lifelong nonsmoker. He denies any marijuana alcohol or drug use. The patient desires to be full code and his is a durable power real estate associate attorney for healthcare. Smoking status: Never smoker Second hand tobacco smoke exposure: No Alcohol intake: current Drinks per week: 1 Alcohol use details: occasionally Substance use: current Substance use type: marijuana Lack of Transportation: No Lack of Food: Never True Current Housing: I Have Housing Concerned About Future Housing: No Difficulty Paying Gas/Electric Bills: No Difficulty Paying for Meds: No Currently Unemployed: No Education: Bachelor's Degree Difficulty w/ Childcare or Family Care: No Living arrangements: with family Gender identity (if verbalized by the patient): Male Spiritual care concerns: No Comments At the time of my signature, I reviewed and agree with the nursing past medical, surgical, social, and family history. There is no relevant family history pertinent to the patient complaint. Exam Const: General: cooperative, healthy appearing, comfortable, no acute distress, well developed, alert and well nourished Nutritional Appearance: well nourished Orientation/consciousness: patient oriented x3 Limitations: no limitations HENMT: Head: normal to inspection Ears: hearing grossly normal bilaterally, external ears normal, TM's normal bilaterally, EAC's normal, mastoids normal and no periauricular adenopathy Mouth: Yes Normal oral and palatal mucosa present, Yes lip normal, Yes tongue normal and Yes moist mucous membranes Throat: posterior oropharynx normal, uvula midline, postnasal drainage and no uvular edema Eyes: General: appearance normal, both eyes and all related structures Alignment and Position: alignment normal Neck: Neck: normal visual inspection, full ROM, no lymphadenopathy and no meningeal signs Chest: Chest palpation & inspection: normal inspection of the chest Resp: Effort & Inspection: normal respiratory effort and able to speak in complete sentences Auscultation: clear to auscultation bilaterally, no crackles, no rales, no rhonchi and no wheezes Cardio: Rate: regular rate Skin: General skin exam: normal color and no rashes or lesions noted Neuro: General: patient oriented x3, gait normal, moves all extremities and no meningeal signs Cognition (Neuro): normal cognition Speech: normal speech Gait exam (Neuro): Normal gait present Extrem: General: normal to inspection, full ROM, capillary refill normal and normal gait Psych: Appearance: grossly normal and well kempt Mental Status: mental status grossly normal Speech and movement: Normal speech and movement present and Clear speech present Affect: normal affect Attitude: cooperative Course Course Level of Care: Express Care Visit Vital Signs Vital signs: Vital Signs Temperature 97.5 F L 11/12/24 13:01 Pulse Rate 54 L 11/12/24 13:01 Respiratory Rate 16 11/12/24 13:01 Blood Pressure 145/81 H 11/12/24 13:01 Pulse Oximetry 99 11/12/24 13:01 Oxygen Delivery Room Air 11/12/24 13:01 Temperature 97.5 F L 11/12/24 13:01 Pulse Rate 54 L 11/12/24 13:01 Respiratory Rate 16 11/12/24 13:01 Blood Pressure 145/81 H 11/12/24 13:01 Pulse Oximetry 99 11/12/24 13:01 Oxygen Delivery Room Air 11/12/24 13:01 Reviewed MDM - URI/Sore Throat MDM Narrative Medical decision making narrative: Patient sitting in exam room. Patient is nontoxic, vitals stable. Patient presents with URI symptoms x4 days. Patient is flu, COVID, strep were all negative. No acute findings other than postnasal drainage noted on exam. Patient appropriate for outpatient treatment with close follow-up Discharge instructions reviewed with patient, as well as provided in writing per nursing staff. The instructions also include specific and strict return/GO TO THE ER as well as f/u information. All questions have been answered, and the patient deny any further questions with discharge and discharge plan. Some parts of this dictation were generated by voice recognition software and may contain typographical and/or grammatical inaccuracies. Differential Diagnosis Differential diagnosis: Likely upper respiratory infection, otitis media, sinusitis, viral infection, bronchitis, influenza and pharyngitis Lab Data Labs: Lab Results 11/12/24 Range/Units 13:15 POC Influenza A Ag Negative (Negative) POC Influenza B Ag Negative (Negative) POC SARS CoV-2 Ag Negative (Negative) POC Grp A Strep Screen Negative (Negative) Reviewed Critical Care Time Critical Care Time Critical Care Time: No Discharge Plan Discharge Clinical Impression: Allergic rhinitis Qualifiers: Allergic rhinitis trigger: other Allergic rhinitis seasonality: unspecified Qualified Code(s): J30.89 - Other allergic rhinitis Patient Disposition: Home Condition: Stable Instructions: Antibiotic Form, Sinusitis (ED) Additional Instructions: Your rapid strep swab was negative today at [facility]. A throat culture will be sent to the laboratory for further testing. If the test is positive, you will receive a phone call within 48 hours and an appropriate antibiotic will be initiated at that time. Your rapid COVID test were negative Your rapid flu test was negative It is very important to treat your symptoms. Drink plenty of water, Gatorade, Pedialyte, ice pops or Jell-O. -Alternate Tylenol and Motrin per package directions for fever or pain. You can alternate every 4 hours -Antihistamine medication such as Zyrtec/Claritin/Lizbet during the day can help improve symptoms. -doing daily nasal irrigations can help relieve pressure your sinuses. Things like a Neti pot -Use Flonase twice a day for 5 days then daily to help reduce the inflammation and dry up your sinuses. -You can also use Mucinex. Be sure to drink plenty of water with this medication at least 8 ounces with every dose and it is important to drink 8 to 10 glasses of water per day. Water is a natural decongestant -Eat and drink things that are easy to swallow, like tea or soup, or popsicles. -Oral rinses such as: Salt water gargles and/or may use topical anesthetic (eg. Chloraseptic spray) or lozenges to relieve dryness or throat pain). -Frequent hand washing or hand hand blocker is one of the best ways to prevent spread of infection. -Using a vaporizer or humidifier at night will also help thin secretions and help with coughing up phlegm. -Follow up with primary care provider in 7-10 days if condition is not improving - For new or worsening symptoms go directly to the nearest ER Patient Language: Dutch Prescriptions: No Action colchicine 0.6 mg tablet 0.3 mg PO DAILY Qty: 7 0RF ibuprofen 800 mg tablet 800 mg DIRECTED montelukast 10 mg tablet 10 mg DIRECTED (DME) Aerochamber MV Spacer See Rx Instructions .Route Qty: 1 0RF Rx Instructions: As directed pantoprazole 20 mg tablet,delayed release (DR/EC) 20 mg PO QAM (DME) marijuana 0 .Route .MEDSUPPLY Patient Comments: EDIBLES 5MG THC. TAKEN FOR PAIN AND SLEEP duloxetine [Cymbalta] 30 mg capsule,delayed release(DR/EC) 30 mg PO BID pregabalin [Lyrica] 300 mg capsule 300 mg PO BID cetirizine [Zyrtec] 10 mg Tablet 10 mg PO DAILY Follow-up/Referrals: Beatrice,Daryl Luna MD [Primary Care Provider, Unknown] - 2 Months Stand Alone Forms: Work/School Release IP Time of Disposition: 13:35
[2024-11-12 13:35] LABS: EDCOVIDSCREEN Negative (Negative); EDINFLUASCREEN Negative (Negative); EDINFLUBSCREEN Negative (Negative); EDSTREPNEGPOS1 Negative (Negative)
== END 2024-11-12 13:41 | disposition home or self-care (01) ==
PROVIDERS: Emergency Provider Nurse Practitioner; PCP Family Medicine
DX: J30.89 Other allergic rhinitis (principal); Z20.822 Contact with and (suspected) exposure to COVID-19; F12.90 Cannabis use, unspecified, uncomplicated; I10 Essential (primary) hypertension; E11.9 Type 2 diabetes mellitus without complications; G47.33 Obstructive sleep apnea (adult) (pediatric)
CPT/HCPCS: 87081; 87426; 87804; 87880; 99213; G0463

== ENCOUNTER 2024-12-18 18:55 | Emergency (ER) | payer OTHER, MEDICARE, SELFPAY ==
--- OUTSIDE RECORDS SUMMARY | 2024-09-25 03:00 | XMS_ITS ---
Author Organization [facility] Address [address] [place] [address] Care Team Providers Care Thoracic Medicine Specialist Name Role Phone Migration, Provider Unavailable Unavailable REASON FOR VISIT EMR-Carlos Encounters Encounter Location Date Provider Diagnosis Migrated_Facility 0 0 09/25/2024 Provider Migration Plan Of Treatment Medication Medication Name Sig Start Date Stop Date Notes traZODone HCl 50 MG Tablet Oral 04/19/[address] 60 MG CAP 04/24/2016 10/16/19 25 *Reorder from Medispan for eRx and Interaction Alerts* Cialis 20 MG Tablet Oral 09/30/2016 10/15/2024 PROAIR HFA 90 MCG INHALER 05/07/2016 10/15/2024 *Reorder from Medispan for eRx and Interaction Alerts* Vivlodex 10 MG Capsule Oral 05/07/2016 10/15/2024 *R eorder from Medispan for eRx and Interaction Alerts* MONTELUKAST SOD 10 MG TABLET 05/07/2016 025 *Reorder from Medispan for eRx and Interaction Alerts* Progress Notes * AMEYA KRAMER LDOB:[birth year] (59 yo M)Acc No.[id number]:09/25/2024 Patient: AMEYA FIELDS Lauren :1965 A ge:59 Y S ex:Male Address:[address], [place], [address] * Refills Stop Cialis Tablet, 20 MG, Oral, 24 Stop Cialis Tablet, 20 MG, Oral, 24 Stop Cialis Tablet, 20 MG, Oral, 24 Stop Cialis Tablet, 20 MG, Oral, 24 Stop traZODone HCl Tablet, 50 MG, Oral, 30 Stop Vivlodex Capsule, 10 MG, Oral, 30 Stop PROAIR HFA 90 MCG INHALER, [address] 60 MG CAP, [address] 60 MG CAP, [address] 60 MG CAP, [address] 60 MG CAP, [address] 60 MG CAP, [address] 60 MG CAP, [address] 60 MG CAP, [address] 60 MG CAP, [address] 60 MG CAP, [address] 60 MG CAP, [address] 60 MG CAP, 30 Stop MONTELUKAST SOD 10 MG TABLET, 30 Subjective: * Chief Complaints: * E MR-Carlos * * Date:
--- OUTSIDE RECORDS SUMMARY | 2024-09-26 03:00 | XMS_ITS ---
Author Organization [facility] Address [address] [place] [address] Care Team Providers Care Seismology Technical Officer Name Role Phone Migration, Provider Unavailable Unavailable REASON FOR VISIT EMR-Carlos Medications Medication SIG (Take, Route, Frequency, Duration) Notes Start Date End Date Status Lisinopril 20 MG Tablet Oral 11/29/2016 Active Gabapentin 100 MG Capsule Oral 11/29/2016 Active Promethazine HCl 25 MG Tablet Oral 04/19/2016 Active Methocarbamol 750 MG Tablet Oral 04/23/2017 Active Gabapentin 600 MG Tablet Oral 04/16/2016 Active Cimetidine 200 MG Tablet Oral 04/15/2016 Active Dicyclomine HCl 20 MG Tablet Oral 04/23/2017 Active Cyclobenzaprine HCl 10 MG Tablet Oral 05/02/2017 Active Famotidine 20 MG Tablet Oral 05/02/2017 Active cloNIDine HCl 0.1 MG Tablet Oral 04/23/2017 Active Cialis 20 MG Tablet Oral 03/14/2017 Active SUBOXONE 2 MG-0.5 MG SL FILM *Reorder from [facility] for eRx and Interaction Alerts* 04/26/2017 Active Azithromycin 250 MG Tablet Oral 03/14/2017 Active Atorvastatin Calcium 10 MG Tablet Oral 05/02/2017 Active ZOLPIDEM TARTRATE 10 MG TABLET *Reorder from [facility] for eRx and Interaction Alerts* 05/27/[address] 60 MG CAP *Reorder from [facility] for eRx and Interaction Alerts* 04/23/2017 Active DOXYCYCLINE HYCLATE 100 MG CAP *Reorder from [facility] for eRx and Interaction Alerts* 05/10/2016 Active HYDROXYZINE VAIBHAV 50 MG CAP *Reorder from [facility] for eRx and Interaction Alerts* 04/23/2017 Active LISINOPRIL-HCTZ 20-12.5 MG TAB *Reorder from [facility] for eRx and Interaction Alerts* 04/23/2017 Active MONTELUKAST SOD 10 MG TABLET *Reorder from [facility] for eRx and Interaction Alerts* 11/29/2016 Active Vivlodex 10 MG Capsule Oral *Reorder from [facility] for eRx and Interaction Alerts* 09/30/2016 Active DIPHENOXYLATE-ATROP 2.5-0.025 *Reorder from [facility] for eRx and Interaction Alerts* 04/19/2016 Active PROAIR HFA 90 MCG INHALER *Reorder from [facility] for eRx and Interaction Alerts* 11/29/2016 Active traZODone HCl 50 MG Tablet Oral 04/23/2017 Active Encounters Encounter Location Date Provider Diagnosis Migrated_Facility 0 0 09/26/2024 Provider Migration Plan Of Treatment No Information Progress Notes * AMEYA KRAMER [birth year]OB:[birth year] (59 yo M)Acc No.[id number]:09/26/2024 Patient: Lauren SALINAS AMEYA Lauren :1965 A ge:59 Y S ex:Male Address:[address] [place] [address] , [place], [address] Subjective: * Chief Complaints: * E MR-Carlos * Medications: T akingAtorvastatin Calcium 10 MG Tablet Oral Azithromycin 250 MG Tablet Oral Cialis 20 MG Tablet Oral Cimetidine 200 MG Tablet Oral cloNIDine HCl 0.1 MG Tablet Oral Cyclobenzaprine HCl 10 MG Tablet Oral Dicyclomine HCl 20 MG Tablet Oral Famotidine 20 MG Tablet Oral Gabapentin 600 MG Tablet Oral Gabapentin 100 MG Capsule Oral Lisinopril 20 MG Tablet Oral Methocarbamol 750 MG Tablet Oral Promethazine HCl 25 MG Tablet Oral traZODone HCl 50 MG Tablet Oral Vivlodex 10 MG Capsule Oral , Notes to Pharmacist: *Reorder from [facility] for eRx and Interaction Alerts*PROAIR HFA 90 MCG INHALER , Notes to Pharmacist: *Reorder from [facility] for eRx and Interaction Alerts*DIPHENOXYLATE-ATROP 2.5-0.025 , Notes to Pharmacist: *Reorder from [facility] for eRx and Interaction Alerts*DOXYCYCLINE HYCLATE 100 MG CAP , Notes to Pharmacist: *Reorder from [facility] for eRx and Interaction Alerts*DULOXETINE HCL DR 60 MG CAP , Notes to Pharmacist: *Reorder from [facility] for eRx and Interaction Alerts*HYDROXYZINE VAIBHAV 50 MG CAP , Notes to Pharmacist: *Reorder from [facility] for eRx and Interaction Alerts*LISINOPRIL-HCTZ 20-12.5 MG TAB , Notes to Pharmacist: *Reorder from [facility] for eRx and Interaction Alerts*MONTELUKAST SOD 10 MG TABLET , Notes to Pharmacist: *Reorder from [facility] for eRx and Interaction Alerts*ZOLPIDEM TARTRATE 10 MG TABLET , Notes to Pharmacist: *Reorder from [facility] for eRx and Interaction Alerts*SUBOXONE 2 MG-0.5 MG SL FILM , Notes to Pharmacist: *Reorder from [facility] for eRx and Interaction Alerts*Taking Atorvastatin Calcium 10 MG Tablet Oral Taking Azithromycin 250 MG Tablet Oral Taking Cialis 20 MG Tablet Oral Taking Cimetidine 200 MG Tablet Oral Taking cloNIDine HCl 0.1 MG Tablet Oral Taking Cyclobenzaprine HCl 10 MG Tablet Oral Taking Dicyclomine HCl 20 MG Tablet Oral Taking Famotidine 20 MG Tablet Oral Taking Gabapentin 600 MG Tablet Oral Taking Gabapentin 100 MG Capsule Oral Taking Lisinopril 20 MG Tablet Oral Taking Methocarbamol 750 MG Tablet Oral Taking Promethazine HCl 25 MG Tablet Oral Taking traZODone HCl 50 MG Tablet Oral Taking Vivlodex 10 MG Capsule Oral , Notes to Pharmacist: *Reorder from [facility] for eRx and Interaction Alerts*Taking PROAIR HFA 90 MCG INHALER , Notes to Pharmacist: *Reorder from [facility] for eRx and Interaction Alerts*Taking DIPHENOXYLATE-ATROP 2.5-0.025 , Notes to Pharmacist: *Reorder from [facility] for eRx and Interaction Alerts*Taking DOXYCYCLINE HYCLATE 100 MG CAP , Notes to Pharmacist: *Reorder from [facility] for eRx and Interaction Alerts*Taking DULOXETINE HCL DR 60 MG CAP , Notes to Pharmacist: *Reorder from [facility] for eRx and Interaction Alerts*Taking HYDROXYZINE VAIBHAV 50 MG CAP , Notes to Pharmacist: *Reorder from [facility] for eRx and Interaction Alerts*Taking LISINOPRIL-HCTZ 20-12.5 MG TAB , Notes to Pharmacist: *Reorder from [facility] for eRx and Interaction Alerts*Taking MONTELUKAST SOD 10 MG TABLET , Notes to Pharmacist: *Reorder from [facility] for eRx and Interaction Alerts*Taking ZOLPIDEM TARTRATE 10 MG TABLET , Notes to Pharmacist: *Reorder from [facility] for eRx and Interaction Alerts*Taking SUBOXONE 2 MG-0.5 MG SL FILM , Notes to Pharmacist: *Reorder from [facility] for eRx and Interaction Alerts* * * Date:
--- NOTE | ~2024-12-18 | XR_ITS ---
Examination: XR chest 1V portable Clinical History: syncope vs seizure Comparison: 12/19/2023 Technique: Portable AP Findings: Unchanged cardiomegaly. Elevated left hemidiaphragm, associated basilar atelectasis. Lungs otherwise clear. No acute bony abnormality. IMPRESSION: 1. No acute cardiopulmonary findings given portable technique. Reviewed, dictated and finalized at location R. GATE KEEPER
--- NOTE | ~2024-12-18 | CT_ITS ---
CT HEAD NON-CONTRAST CT C-SPINE Clinical History: seizure Comparison: CT brain 12/19/2023 Technique: Unenhanced axial images skull base to vertex. Coronal, sagittal reformats. Axial images thoracic inlet to skull base. Sagittal and coronal reformats. CT images acquired with automatic exposure control for dose reduction DLP: 681 mGy-cm Findings: Head: Sulci, ventricles: Unremarkable. No intracerebral hemorrhage. No evidence acute territorial infarct. No mass effect, midline shift, intra-/extra-axial fluid collection. Bony calvarium intact. Visualized paranasal sinuses: Clear. Mastoid air cells: Clear. C-spine: No acute fracture or listhesis. Straightening of normal cervical lordosis. Moderate degenerative changes. Disc spaces maintained. Prevertebral soft tissues within normal limits. Visualized lung apices: Clear. Visualized thyroid: Unremarkable. No enlarged cervical nodes. Retropharyngeal internal carotid arteries. IMPRESSION: HEAD: 1. No acute intracranial findings. C-SPINE: 1. No acute fracture. Reviewed, dictated and finalized at location R. LY MANAGER IMPRESSION: HEAD: 1. No acute intracranial findings. C-SPINE: 1. No acute fracture.
[2024-12-18 19:00] VITALS: BP 141/81; PULSE 81; RESP 18; TEMP 36.6; O2SAT 96
--- NOTE | 2024-12-18 20:07 | ECG_ITS ---
Test Date: 2024-12-18 21:51:44 Measurements Intervals Manti Rate: 57 P: 62 WA: 214 QRS: 65 QRSD: 100 T: 43 QT: 456 QTc: 446 Interpretive Statements SINUS BRADYCARDIA WITH FIRST DEGREE AV BLOCK MINIMAL VOLTAGE CRITERIA FOR LVH, CONSIDER NORMAL VARIANT [MEETS CRITERIA IN ONE OF: R(aVL), S(V1), R(V5), R(V5/V6)+S(V1)] ANTERIOR T-WAVE ABNORMALITY, CONSIDER ISCHEMIA ABNORMAL ECG Electronically Signed On 12-19-2024 08:42:59 BIOMASS PLANT MANAGER by Barron Camarena M.D.
--- OUTSIDE RECORDS SUMMARY | 2024-12-18 20:28 | XMS_ITS | Clinical Summary ---
Author Organization [facility] Address [address] [place] [address] Care Team Providers Care Prepress Operator Name Role Phone Fannie Salinas MD Primary Care Provider [phone] Source Comments [facility],non-owned Affiliates and Associated Physician Practices is amultiple site organization consisting of ambulatory clinics and hospital sitesin [place], [place], [place] and [place]. This disclosure is being madepursuant to the Care Everywhere program and may not contain all information available regarding this patient. Last updated [employer] [facility] Allergies No known active allergies Medications * Be aware that medications may not be up to date on this document. Alwaysverify current medications with the patient. 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 Gender Identity Not on file Sexual Orientation Not on file Last Filed Vital Signs Vital Sign Reading Time Taken Comments Blood Pressure 138/78 05/21/2018 10:04 AM CDT Pulse 66 05/21/2018 9:46 AM CDT Temperature 36.8 C (98.2 F) 05/21/2018 9:46 AM CDT Respiratory Rate 16 05/21/2018 9:46 AM CDT Oxygen Saturation - - Inhaled Oxygen Concentration - - Weight 113.4 kg (250 lb) 05/21/2018 9:46 AM CDT Height 177.8 cm (5' 10) 05/21/2018 9:46 AM CDT Body Mass Index 35.87 05/21/2018 9:46 AM CDT Plan of Treatment Health Maintenance Due Date Last Done Comments COLOGUARD (AGES 45-75) - COL ON CA SCREENING 1965 COLON MONITORING 1965 COLONOSCOPY - COLON CA SCREENING 1964 CT COLONOGRAPHY - COLON CA SCREENING 1965 Colorectal Cancer Screening 1965 FIT - COLON CA SCREENING 1965 FLEX SIG - COLON CA SCREENING 1965 LIPID TESTING 1965 HIV SCREENING 06/06/1979 HEPATITIS C SCREENING 06/01/1982 DTAP/TDAP/TD VACCINES (1 - Tdap) 06/06/1983 PNEUMOCOCCAL VACCINE 50+ (1 of 1 - PCV) 2014 ZOSTER VACCINE (1 of 2) 2014 SCREENING FOR DIABETES 05/21/2018 DEPRESSION SCREENING 02/11/2024 COVID-19 VACCINE (1 - 2023-2 5 season) 2024 INFLUENZA VACCINE (#1) 2024 Respiratory Syncytial Virus (RSV) Vaccine Pt: or over 60 yrs (1 - 1-dose 75+ series) 06/06/2039 HEPATITIS B VACCINE Aged Out No longe r eligible based on patient's age to complete this topic HIB VACCINE Aged Out No longer eligi ble based on patient's age to complete this topic HPV VACCINE Aged Out No longer eligi ble based on patient's age to complete this topic MENINGOCOCCAL (Group B) VACC INE SHARED DECISION-MAKING Aged Out No longer eligibl e based on patient's age to complete this topic MENINGOCOCCAL GROUPS A/C/Y/W VACCINE Aged Out No longer eligible b ased on patient's age to complete this topic Insurance ANTH MEDICARE MEDICARE Care Teams Prepress Operator Relationship Specialty Start Date End Date Fannie Salinas MD [address] [place] [address] PCP - General Internal Medicine 05/21/18
--- OUTSIDE RECORDS SUMMARY | 2024-12-18 20:28 | XMS_ITS | Clinical Summary ---
Author Organization [facility] Address [address] [place] [address] Phone [email or web address] Care Team Providers Care Corner Cutter Machine Operator Name Role Phone Unavailable Primary Care Provider Unavailabl e Social History Tobacco Use Types Packs/Day Years Used Date Smoking Tobacco: Never Assessed Intimate Partner Violence Answer Date R ecorded Insults You Not on file 02/23/2021 Threatens You Not on file 02/23/2021 Screams at You Not on file 02/23/2021 Physically Hurt Not on file 02/23/2021 Intimate Partner Violence Score Not on file 02/23/2021 Stress Answer Date Recorded Stress in your Life Not on file 12/19/2023 Dealing with Stress 3 12/19/2023 Sex and Gender Information Value Date Recorded Sex Assigned at Not on file 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
--- OUTSIDE RECORDS SUMMARY | 2024-12-18 20:28 | XMS_ITS | Clinical Summary ---
Author Organization [facility] C Address [address] [place] [address] Care Team Providers Care Payloader Operator Name Role Phone Daryl Barron MD Primary Care Provider [phone] Allergies Active Allergy Reactions Criticality Noted Date Comments Shrimp Swelling High 05/01/2017 Swelling of tongue and throat Medications DULoxetine DR (CYMBALTA) 20 mg capsule Take 1 capsule (20 mg total) by mouth 2 (two) times a day Active pregabalin (LYRICA) 300 mg capsule Take 1 capsule (300 mg total) by mouth 2 (two) times a day Active montelukast (SINGULAIR) 10 mg tablet Take 1 tablet (10 mg total) by mouth nightly Active cetirizine (ZyrTEC) 10 mg tablet Take 1 tablet (10 mg total) by mouth daily Active pantoprazole DR (PROTONIX) 40 mg EC tablet Take 1 tablet (40 mg total) by mouth daily Active cholecalciferol (VITAMIN D-3) 50,000 unit capsuleIndication s:Vitamin D deficiency disease Take 1 capsule (50,000 Units total) by mouth once a week for 24 doses 24 capsule 2 Active gabapentin (NEURONTIN) 100 mg capsule Take 3 capsules (300 mg total) by mouth 3 (three) times a day 270 capsule 11 2 Active cyclobenzaprine (FLEXERIL) 5 mg tabletIndications :Lumbar stenosis with neurogenic claudication TAKE 1 TABLET BY MOUTH THREE TIMES A DAY NEEDED FOR MUSCLE SPASMS 90 tablet 2 Active cholecalciferol (VITAMIN D-3) 50,000 unit capsuleIndication s:Vitamin D deficiency disease Take 1 capsule (50,000 Units total) by mouth once a week for 24 doses 4 capsule 5 2 Active hydroCHLOROthiazi de (HYDRODIURIL) 25 mg tabletIndications :S/P lumbar spinal fusion Take 1 tablet (25 mg total) by mouth daily 7 tablet 2 Active atorvastatin (LIPITOR) 10 mg tablet Take 1 tablet (10 mg total) by mouth nightly 8 Active Symbicort 160-4.5 mcg/actuation inhaler 2 Active tadalafiL (CIALIS) 20 mg tablet 2 Active methylPREDNISolon e (Medrol, Bao,) 4 mg DosepackIndicatio ns:Anti-inflammat ory follow package directions 1 packet 2 Active HYDROcodone-aceta minophen (Mina) 5-325 mg per tabletIndications :Pain Take 1 tablet by mouth every 6 (six) hours as needed for pain Max 6/day. 60 tablet 2 Active hydroCHLOROthiazi de (HYDRODIURIL) 12.5 mg tablet TAKE 1 TABLET (12.5 MG TOTAL) BY MOUTH 2 (TWO) TIMES A DAY NEEDED (SWELLING) 30 tablet 2 Active tiZANidine (ZANAFLEX) 4 mg tablet TAKE 1 TABLET BY MOUTH EVERY 6 HOURS NEEDED FOR MUSCLE SPASMS. 90 tablet 2 2 Active lisinopril-hydroC HLOROthiazide (ZESTORETIC) 20-12.5 mg per tablet daily Active fluticasone propionate (FLONASE) 50 mcg/actuation nasal spray Administer 1 spray into each nostril daily Active Active Problems Problem Noted Date Diagnosed Date EMILEE (obstructive sleep apnea) 04/17/2021 Assessment & Plan (12/06/2024 11:49 AM CDT): Patient continue to wear CPAP at 8 cm water pressure while sleeping. I have ordered a chinstrap see if this will help him to keep his mouth closed. The patient's DME is [facility]. Assessment & Plan (02/18/2023 8:58 AM MACHINE SPECIALIST): Due to continued symptoms, the patient will continue CPAP at 8 cm water pressure. I encouraged the patient to wear the CPAP at least 4 hours a night on 70% of the nights. Patient is currently being treated for URI by PCP. I ordered a mask. DME [facility] Assessment & Plan (11/18/2022 9:08 AM CDT): I have ordered the patient new CPAP set at 8 cm of water pressure while sleeping. I have informed the patient that Medicare requires the patient wears his CPAP at least 4 hours a night on 70% nights. The patient verbalized understanding. Assessment & Plan (04/17/2021 1:10 PM MACHINE SPECIALIST): I did recommend that the patient restart CPAP therapy since he never used a So Clean machine. Since he has lost weight, I will decrease the CPAP to 8 cm water pressure. He also is in need of new supplies and would like to look at different styles of mask. His DME supplier is [facility]. He will follow-up with me in 3 months. S/P lumbar spinal fusion 03/09/2021 Assessment & Plan (05/23/2021 2:16 PM CDT): Mr. Giles is status post L3-4 decompression and fusion on 03/09/2021 for lumbar stenosis with neurogenic claudication. He was last seen in March. He seems to have musculoskeletal pain that extends up from the incision and into his bilateral buttocks and proximal posterior thigh on the right. We will give him a script Medrol Dosepak script. We will give him a script for physical therapy for back and leg stretching and strengthening exercises. I have encouraged him to do water therapy and heat. I plan to see him back in 3 months with AP and lateral lumbar spine films at that time. We will allow him to return to work in 3 weeks. Assessment & Plan (04/09/2021 1:40 PM MACHINE SPECIALIST): PLAN: - Continue activity restrictions at outlined prior to surgery. - Renew medications: Vitamin D 50,000 weekly for six months. Percocet 5/325 max 8/day. Continue HCTZ 12.5 mg once daily. - Continue brace -Instructed to use ice to incision as needed for swelling. Limit brace to minimize swelling. -Explained to be patient, as he is doing all the right things and to continue with plan outlined. 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 Sahu in 6 weeks with Flexion/Extension Lumbar spine films. Assessment & Plan (03/26/2021 10:29 AM MACHINE SPECIALIST): PLAN: - Continue activity restrictions as outlined prior to surgery. - Instructed to hold wearing the brace at this time until swelling has lessened. To continue monitoring the incision on a daily basis. To apply a dry dressing to the incision if drainage is present. - Renew medications: Continue hydrochlorothiazide 12.5 mg twice a day. Will renew the Percocet 5-325 script for no more than 8 tablets per day. Patient to continue taking gabapentin on top of his Lyrica at this time for neuropathic pain. Explained to the patient that some of the underlying swelling may be putting some pressure against his nerves which could warrant some of his pain in his buttocks. - instructed patient to monitor his blood pressure at home 3-4 times per day and to keep a diary and to notify his primary care provider of his read outs. 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 MRI CD from preoperative was returned to the patient. Assessment & Plan (03/19/2021 11:38 AM MACHINE SPECIALIST): PLAN: - Continue activity restrictions as outlined prior to surgery - Continue brace. -Dry dressing changed daily -Start HCTZ 12.5 mg bid for 15 days to help with reabsorb the lumbar drainage -Keep a blood pressure diary using home monitoring equipment three times per day and notify PCP if consistently elevated. Could be secondary to pain. 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 Then with [facility] on April 16, 2021 with AP/LAT Lumbar Xray. Lumbar stenosis with neurogenic claudication Assessment & Plan (12/05/2020 3:49 PM CDT): Mr. Giles has lumbar stenosis with neurogenic claudication at the L3-4 level. He has lateral recess stenosis and foraminal stenosis. There was a prior anterior lumbar interbody fusion at it is unclear whether this is fused or not. I would recommend a CT of the lumbar spine to assess fusion at L4-5. I would offer him and for decompression. 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 We discussed conservative options including medications therapy injections we will speak to him by phone about the results of the CT and final recommendations. 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 Luna L4-5 PSF KNEE SURGERY SHOULDER SURGERY HERNIA REPAIR Medical History Medical History Date Comments Diabetes mellitus Depression Sleep apnea Hypertension Asthma Pneumonia Arthritis Hx of blood clots PE post knee s urgery, no further incident Substance abuse (HCC) Covid-19 Obesity BMI 37 Family History Medical History Relation Name Comments Alcohol abuse Father Family history of alcohol abuse - (Added by TW Conv) Cancer Father Family history of malignant neoplasm - (Added by TW Conv) Hypertension Mother Family history of hypertension - (Added by TW Conv) Asthma Son Family history of asthma - (Added by TW Conv) Relation Name Status Comments Father Mother Son Social History Tobacco Use Types Packs/Day Years Used Date Smoking Tobacco: Never Smokeless Tobacco: Never AUDIT-C Answer Date Recorded Q1: How often do you have a drink containing alc ohol? Never 04/17/2021 Q2: How many drinks containi ng alcohol do you have on a typical day when you are drinking? 3 or 4 04/17/2021 Q3: How often do you have six or more drinks on one occasion? Never 04/17/2021 PHQ-2 Answer Date Recorded PHQ-2 Total Score (If total score is 3 or more points, staff should administer the PHQ-9) 4 12/05/2020 Personal Safety Answer Date Recorded Have you ever been in or are you currently in a harmful physical or emotional relationship or is someone making you feel afraid or unsafe? 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 Not on file Not on file Not on file Last Filed Vital Signs Vital Sign Reading Time Taken Comments Blood Pressure 120/78 12/06/2024 11:31 AM CDT Pulse 89 12/06/2024 11:31 AM CDT Temperature 36.4 C (97.5 F) 12/06/2024 11:31 AM CDT Respiratory Rate 16 12/06/2024 11:31 AM CDT Oxygen Saturation 98% 12/06/2024 11:31 AM CDT Inhaled Oxygen Concentration - - Weight 116.6 kg (257 lb) 12/06/2024 11:31 AM CDT Height 175.3 cm (5' 9) 12/06/2024 11:31 AM CDT Body Mass Index 37.95 12/06/2024 11:31 AM CDT Plan of Treatment Health Maintenance Due Date Last Done Comments Colon Cancer Screening-Colonoscopy 1965 Hepatitis C Screening 1965 Prostate Cancer Screening-PSA 1965 DTaP/Tdap/Td Vaccine (1 - Tdap) 06/06/1975 Hepatitis B Screening 1982 Regular Well Visit/Exam 18-64 1982 Pneumococcal vaccine <65 (1 of 2 - PCV) 06/06/1983 Zoster Vaccine (1 of 2) 2014 Depression Screening 12/05/2021 12/05/2020, 12/06/19 21 Covid-19 Vaccine (3 - 2024- season) 2024, 04/27/2020 Influenza Vaccine (#1) 2024 Medical Devices Implanted Type Area Manager Strategy Device Identifier Shelf Expiration Date Model / Serial / Lot Fusion Spine Lumbar Description:L4-L5 fusion [employer] [id number] Inqu Paste Mix Plus Tool Maker 10cc Bone Graft Hyaluronic Acid Poly - [id number] Implanted:Qty: 1 on 03/09/2021 by Andrew Sahu MD at [facility] N/A: Spine Lumbar [employer] [id number] 03/07/2022 [id number] / / [id number] Core Link [id number] Anderson 7mm 45mm Spine Pedicle Screw Bone Nonsterile 5500 Series - [id number] Implanted:Qty: 4 on 03/09/2021 by Andrew Sahu MD at [facility] N/A: Spine Lumbar Core Link [id number] / / Core Link [id number] Anderson Screw Set 5500 Series - [id number] Implanted:Qty: 4 on 03/09/2021 by Andrew Sahu MD at [facility] N/A: Spine Lumbar Core Link [id number] / / Core Link [id number] Anderson 5.5mm 50mm Line Prebent Rebel Spinal Nonsterile 5500 Series - [id number] Implanted:Qty: 2 on 03/09/2021 by Andrew Sahu MD at [facility] N/A: Spine Lumbar Core Link [id number] / / Insurance MEDICARE [facility] Address: [address] [address] [facility] MEDICARE [facility] Address: [facility] [address] [place] [address] Advance Directives For more information, please contact: [phone] * Full Code (Latest Code Status on File) Date Activated Date Inactivated Comments 03/09/2021 1:21 PM 03/10/2021 11:15 PM Care Teams Payloader Operator Relationship Specialty Start Date End Date Daryl Barron MD [address] [place] [address] PCP - General Family Medicine 09/09/23
--- OUTSIDE RECORDS SUMMARY | 2024-12-18 20:28 | XMS_ITS | Patient Health Record ---
Author Organization [facility] Address [address] [place] [address] Care Team Providers Care Candy Department Manager Name Role Phone Migration, Provider Unavailable Unavailable Reason For Referral No Information Medications Medication SIG (Take, Route, Frequency, Duration) Notes Start Date End Date Status Cimetidine 200 MG Tablet Oral 04/15/2016 Active Cialis 20 MG Tablet Oral 03/14/2017 Active Lisinopril 20 MG Tablet Oral 11/29/[address] 60 MG CAP *Reorder from [facility] for eRx and Interaction Alerts* 04/23/2017 Active Gabapentin 100 MG Capsule Oral 11/29/2016 Active DOXYCYCLINE HYCLATE 100 MG CAP *Reorder from [facility] for eRx and Interaction Alerts* 05/10/2016 Active Promethazine HCl 25 MG Tablet Oral 04/19/2016 Active Methocarbamol 750 MG Tablet Oral 04/23/2017 Active HYDROXYZINE VAIBHAV 50 MG CAP *Reorder from [facility] for eRx and Interaction Alerts* 04/23/2017 Active Dicyclomine HCl 20 MG Tablet Oral 04/23/2017 Active Cyclobenzaprine HCl 10 MG Tablet Oral 05/02/2017 Active Vivlodex 10 MG Capsule Oral *Reorder from [facility] for eRx and Interaction Alerts* 09/30/2016 Active SUBOXONE 2 MG-0.5 MG SL FILM *Reorder from [facility] for eRx and Interaction Alerts* 04/26/2017 Active Azithromycin 250 MG Tablet Oral 03/14/2017 Active Gabapentin 600 MG Tablet Oral 04/16/2016 Active DIPHENOXYLATE-ATROP 2.5-0.025 *Reorder from [facility] for eRx and Interaction Alerts* 04/19/2016 Active Atorvastatin Calcium 10 MG Tablet Oral 05/02/2017 Active Famotidine 20 MG Tablet Oral 05/02/2017 Active PROAIR HFA 90 MCG INHALER *Reorder from [facility] for eRx and Interaction Alerts* 11/29/2016 Active LISINOPRIL-HCTZ 20-12.5 MG TAB *[facility] and Interaction Alerts* 04/23/2017 Active cloNIDine HCl 0.1 MG Tablet Oral 04/23/2017 Active ZOLPIDEM TARTRATE 10 MG TABLET *[facility] from [facility] for eRx and Interaction Alerts* 05/27/2016 Active traZODone HCl 50 MG Tablet Oral 04/23/2017 Active MONTELUKAST SOD 10 MG TABLET *Reorder from [facility] for eRx and Interaction Alerts* 11/29/2016 Active Encounters Encounter Location Date Provider Diagnosis Migrated_Facility 0 0 09/25/2024 Provider Migration Migrated_Facility 0 0 09/26/2024 Provider Migration Plan Of Treatment No Information Insurance Providers Payer Name Payer Address Payer Phone Subscriber Number Group Number Insured Name Patient Relationship to Insured Coverage Start Date Coverage End Date [facility] [address] [place] [address] [id number] DAO ROGER Spouse - patient is the spouse of the insured
--- OUTSIDE RECORDS SUMMARY | 2024-12-18 20:28 | XMS_ITS | Patient Health Record ---
Author Organization [facility] Address [address] [place] [address] Care Team Providers Care Plumber Gasfitter Name Role Phone Jonathan Trevizo Primary Care Provider [phone] Allergies Allergen (clinical drug ingredient) Drug/Non Drug Allergy documented on EMR Reaction Allergy Type Onset Date Status Shellfish (FN) shrimp (uncoded) anaphylaxis Allergy Active Reason For Referral No Information Medications Medication SIG (Take, Route, Frequency, Duration) Notes Start Date End Date Status DULoxetine HCl 60 MG 1 capsule Orally Once a day Active Lisinopril-hydroCHLOROthi azide 20-12.5 MG 1 tablet Orally Once a day Active Vivitrol 380 MG 4 ml Intramuscular e very 28 days; Duration: 28 days Active Gabapentin 100 MG 1 capsule Orally Thr ee times a day Active tiZANidine HCl 4 MG 1 tablet as needed O rally Three times a day Active Social History Tobacco Use: Social History Observation Description Date Details (start date - stop date) Never Smoker NA - NA Dont use, Tobacco Use/Smoking Question Answer Notes Are you a nonsmoker Additional Findings: Tobacco Non-User Current no n-smoker Alcohol Screen (Audit-C) Question Answer Notes Did you have a drink containing alcohol in the p ast year? No Points 0 Interpretation Negative PRAPARE Question Answer Notes Date Completed/Updated: 05/29/2017 What is your current housing situation? I have h ousing Are you worried about losing your housing? No What is the highest level of school that you have finished? High school diploma or GED What is your current work situation? 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 Check all that apply I do not have problems meeting my needs Has lack of transportation k ept you from medical appointments, meetings, work or from getting things needed for daily living? No How often do you see or talk to people that you care about and feel close to? (For example: talking to friends on the phone, visiting friends or family, going to moravian or club meetings) 1 or 2 times a week How stressed are you? Stress is when someone feels tense, nervous, anxious, or can\t sleep at night because their mind is troubled A little bit In the past year have you sp ent more than 2 nights in a row in a alf, penitentiary, fci center, or juvenile correctional facility? No Are you a refugee? No What country are you from? [place] Do you feel physically and e motionally safe where you currently live? Yes In the past year, have you b een afraid of your partner or ex-partner? No PRAPARE Score: 6 Section Notes: Problems Problem Type SNOMED Code ICD Code Onset Dates Problem Status W/U Status Risk Notes Problem Obesity (724542504) Obesity (BMI 30-39.9) (E66.9) Active confirmed Problem Opioid dependence in remission (729739540) Opioid use disorder, severe, in early remission (F11.21) Active confirmed Plan Of Treatment No Information Insurance Providers Payer Name Payer Address Payer Phone Subscriber Number Group Number Insured Name Patient Relationship to Insured Coverage Start Date Coverage End Date [facility] [address] [place] [address] [id number] Gagan iGles Self - patient is the insured 8 [facility] [address] [place] [address] [phone] [id number] Gagan Giles Self - patient is the insured 8 Medical (General) History Medical History History ICD Code opiate use disorder hypertension Surgical History Surgery Date(Month/Year) back surgery L4 & L5 2000 left knee 1995 left shoulder 1995
--- OUTSIDE RECORDS SUMMARY | 2024-12-18 20:28 | XMS_ITS | Clinical Summary ---
Author Organization [facility] Address [facility] [place] [address] Care Team Providers Care Manager Drive Name Role Phone Daryl Barron MD Primary Care Provider [phone] Allergies Active Allergy Reactions Criticality Noted Date Comments Shrimp Extract Angioedema,Swelling High 05/01/2017 Swelling of tongue and throat Medications albuterol sulfate HFA 108 (90 Base) MCG/ACT inhaler Inhale 2 puffs into the lungs every 4 (four) hours as needed. 11/20/2023 Active cetirizine (ZYRTEC) 10 MG tablet Take 1 tablet (10 mg total) by mouth daily. Active doxycycline monohydrate (ADOXA) 100 MG tablet Take 1 tablet (100 mg total) by mouth 2 (two) times daily. 11/20/2023 Active DULoxetine (CYMBALTA) 20 MG capsule Take 1 capsule (20 mg total) by mouth 2 (two) times daily. Active ibuprofen (MOTRIN) 800 MG tablet Take 1 tablet (800 mg total) by mouth 2 (two) times daily. 04/21/2024 Active montelukast (SINGULAIR) 10 MG tablet Take 1 tablet (10 mg total) by mouth daily. Active pantoprazole EC (PROTONIX) 40 MG tablet Take 1 tablet (40 mg total) by mouth 2 (two) times daily. Active Pregabalin 300 MG Cap Take 1 capsule by mouth 3 (three) times daily. Active lisinopril-hydro CHLOROthiazide (ZESTORETIC) 20-12.5 MG tablet Take 2 tablets by mouth daily. NEW DOSE 07/30/24 180 tablet 1 07/30/2024 Active Active Problems Problem Noted Date Diagnosed Date Opioid dependence, in remission 07/30/2024 Obesity 07/29/2024 EMILEE (obstructive sleep apnea) 04/17/2021 HTN (hypertension) 05/01/2017 Encounters Date Type Department Care Team Description 11/09/2024 12:15 PM CDT [facility], [address] [phone] Kaushik oGnzalez MD Hypertension 11/09/2024 Travel from Last 3 Months Social History Tobacco Use Types Packs/Day Years Used Date Smoking Tobacco: Never Passive Smoke Exposure: Never Smokeless Tobacco: Never Tobacco Cessation:Counseling Given: Not Answered Alcohol Use Standard Drinks/Week Comments Yes 2 (1 standard drink = 0.6 oz pur e alcohol) Sex and Gender Information Value Date Recorded Sex Assigned at Male 07/30/2024 10:06 AM CDT Legal Sex Male 4:33 PM CDT Gender Identity Not on file Sexual Orientation Not on file Last Filed Vital Signs Vital Sign Reading Time Taken Comments Blood Pressure 142/84 11/09/2024 12:47 PM CDT Pulse 59 11/09/2024 12:16 PM CDT Temperature - - Respiratory Rate - - Oxygen Saturation 99% 11/09/2024 12: 16 PM CDT Inhaled Oxygen Concentration - - Weight 116.8 kg (257 lb 6.4 oz) 025 12:16 PM CDT Height 175.3 cm (5' 9) 11/09/2024 12:1 6 PM CDT Body Mass Index 38.01 11/09/2024 12:16 PM CDT Plan of Treatment Upcoming Encounters Date Type Department Care Team (Late st Contact Info) Description 02/17/2025 9:15 AM DOUBLE HEAD MACHINE OPERATOR Office Visit [facility], [address] [phone] Lilia Mcdonald PA [address] [place] [address] [phone] Health Maintenance Due Date Last Done Comments Colorectal Cancer Screening Colonoscopy (10 Years) 1964 Annual Physical 06/06/1967 Hepatitis C 1982 DTaP, Tdap and Td Vaccines ( 1 - Tdap) 06/06/1983 Pneumococcal Vaccine: 50+ Years (1 of 1 - PCV) 2014 Zoster Vaccines (1 of 2) 2014 COVID-19 Vaccine (3 - 2024-2 6 season) 2024 05/26/2020, 04/27/2020 Influenza Adult (#1) 2024 RSV Immunization or 60+ Years (1 - 1-dose 75+ series) 06/06/2039 Hepatitis A Vaccines Aged Out No long er eligible based on patient's age to complete this topic Meningococcal B Vaccine Aged Out No l onger eligible based on patient's age to complete this topic Meningococcal Vaccine Aged Out No travis joel eligible based on patient's age to complete this topic RSV Immunizations Under 20 Months Aged Out No longer eligible b ased on patient's age to complete this topic Insurance [facility] MEDICARE Advance Directives Documents on File Type Date Recorded Patient Vice President Underwriting Expl anation Advance Directives and Living Will 03/29/2011 12:00 AM ADVANCED DIRECTIVES Advance Directives and Living Will 03/29/2011 12:00 AM ADVANCED DIRECTIVES Advance Directives and Living Will 01/01/2011 12:00 AM ADVANCED DIRECTIVES Care Teams Manager Drive Relationship Specialty Start Date End Date Daryl Barron MD [address] [place] [address] PCP - General FAMILY PRACTICE 07/30/24
--- NOTE | 2024-12-18 20:33 | ED.HEATRA ---
HPI - Head Injury General Chief complaint: Head Injury Stated complaint: [id number] head Time Seen by Provider: 12/18/24 20:04 Source: patient Mode of arrival: ambulatory Limitations: no limitations History of Present Illness HPI Narrative: This is a 59 year old male that presents to the ER for seizure like activity. Reports he had a witnessed event in his front yard. Fell and hit his head and had several minutes of reported seizure like activity. Was confused after. Did not bite his tongue and was not incontinent. Reports he has a headache currently and does not feel well. Reports a couple of previous similar episodes for which he has been admitted to the hospital in the past. Denies chest pain, shortness of breath, focal numbness, weakness. Related Data Home Medications ?Medication ?Instructions ?Recorded ?Confirmed ?Last Taken ?Type cetirizine 10 mg tablet (Zyrtec) 10 mg PO DAILY 01/01/20 11/20/23 07/19/22 History duloxetine 30 mg capsule,delayed 30 mg PO BID 07/26/21 11/20/23 07/19/22 History release (Cymbalta) marijuana 07/26/21 08/08/22 Unknown History pantoprazole 20 mg tablet,delayed 20 mg PO QAM 07/26/21 11/20/23 07/19/22 History release pregabalin 300 mg capsule (Lyrica) 300 mg PO BID 07/26/21 11/20/23 07/19/22 History ibuprofen 800 mg tablet 800 mg DIRECTED 11/20/23 11/20/23 Unknown History montelukast 10 mg tablet 10 mg DIRECTED 11/20/23 11/20/23 Unknown History Allergies Allergy/AdvReac Type Severity Reaction Status Date / Time No Known Allergies Allergy Verified 11/12/24 12:54 Review of Systems Review of Systems: All systems reviewed & are unremarkable except as noted in HPI and below PMFSH Past Medical History Medical History Asthma Chronic back pain Low back pain Degenerative disc disease Depression Hypertension Obstructive sleep apnea Not using CPAP Type 2 diabetes mellitus Hemoglobin A1c 6.8 in 2019 Surgical History Surgical History History of arthroscopy of left knee Previous back surgery Lumbar fusion L4 through S1 S/P left rotator cuff repair Family History Family History Mother Acute myocardial infarction Asthma Hypertension Sibling Acute myocardial infarction Sibling Acute myocardial infarction Diabetes mellitus Father History of blood clots Colon cancer Prostate carcinoma Social History Social History Social History: The patient had 2 children from a previous and 2 from his current and adopted his nieces. His son at the age of 27 with asthma attack. He is currently and lives with his and children. 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 Lifelong nonsmoker. He denies any marijuana alcohol or drug use. The patient desires to be full code and his is a durable power defense attorney for healthcare. Second hand tobacco smoke exposure: No Alcohol intake: current Drinks per week: 1 Alcohol use details: occasionally Substance use: current Substance use type: marijuana Lack of Transportation: No Lack of Food: Never True Current Housing: I Have Housing Concerned About Future Housing: No Difficulty Paying Gas/Electric Bills: No Difficulty Paying for Meds: No Currently Unemployed: No Education: Bachelor's Degree Difficulty w/ Childcare or Family Care: No Living arrangements: with family Gender identity (if verbalized by the patient): Male Spiritual care concerns: No Exam Narrative: GENERAL: Well-appearing, well-nourished, and in no acute distress. HEAD: Normocephalic, atraumatic. EYES: PERRLA and EOMI. ENT: Nares clear, no rhinorrhea or epistaxis. Mucous membranes moist. Oropharynx without tonsillar hypertrophy exudate or other lesions. Bilateral TMs pearly agustin non-bulging NECK: Supple. No adenopathy or masses. CHEST: Clear to auscultation. No respiratory distress. No wheezes rales or rhonchi HEART: Regular rate and rhythm. No murmur heard. Normal peripheral pulses. ABDOMEN: Soft, nontender, nondistended, normal active bowel sounds. EXTREMITIES: Normal range of motion. No edema. Strength equal in bilateral upper and lower extremities (5/5) SKIN: Warm, dry, no rash. NEURO: No focal deficits. Alert and oriented x3. CN II-XII grossly intact PSYCH: Normal mood and affect Course Vital Signs Vital signs: Vital Signs Temperature 97.9 F 12/18/24 19:00 Pulse Rate 81 12/18/24 19:00 Respiratory Rate 18 12/18/24 19:00 Blood Pressure 141/81 H 12/18/24 19:00 Pulse Oximetry 96 12/18/24 19:00 Temperature 97.9 F 12/18/24 19:00 Pulse Rate 81 12/18/24 19:00 Respiratory Rate 18 12/18/24 19:00 Blood Pressure 141/81 H 12/18/24 19:00 Pulse Oximetry 96 12/18/24 19:00 MDM - Head Injury MDM Narrative Medical decision making narrative: Patient presents the emergency department for a syncopal episode versus seizure. He is afebrile and nontoxic appearing. His vitals are stable. He is neurologically intact. Cbc without leukocytosis. Hemoglobin is stable. Metabolic panel without concerning findings. Urine without evidence of infection. Drug screen positive for cannabinoids. Alcohol level is negative. CT brain and cervical spine without acute findings. Chest x-ray without acute findings. EKG unchanged from previous. Baseline troponin is negative. CK very mildly elevated. Lactic acid is not elevated. Patient hydrated with a L of IV fluids, given just Tylenol. Resting comfortably. Patient was updated on his workup. It does appear patient was admitted for similar episode in July of 2022. We spoke about admission for further evaluation, ie EEG. Patient wishes to have outpatient follow-up at this time Differential Diagnosis Differential diagnosis: Likely closed head injury, subdural hematoma, concussion with loss of consciousness and other (Syncope, seizure) Lab Data Attestation: I reviewed the patient's lab results. 12/18/24 21:25 12/18/24 21:25 Labs: Lab Results 12/18/24 12/18/24 Range/Units 21:16 21:25 WBC 9.7 (4.5-10.0) K/mm3 RBC 4.35 L (4.6-6.20) M/mm3 Hgb 12.2 L (14.0-18.0) g/dL Hct 36.1 L (42.0-52.0) % MCV 83.0 (80-100) fl MCH 28.0 (26-34) pg MCHC 33.8 (32-36) g/dl RDW 15.7 H (11.5-14.5) % Plt Count 207 (150-375) k/mm3 MPV 10.8 H (7.4-10.4) fl Immature Gran % (Auto) 0.3 (0-0.5) % Neut % (Auto) 65.8 (45.5-73.1) % Lymph % (Auto) 24.9 (18.3-44.2) % [place] % (Auto) 8.0 (2.6-8.5) % Eos % (Auto) 0.7 (0-4.4) % Baso % (Auto) 0.3 (0.2-1.2) % Lymph # (Auto) 2.41 (0.9-3.2) K/mm3 [place] # (Auto) 0.8 H (0.1-0.6) K/mm3 Eos # (Auto) 0.1 (0-0.3) K/mm3 Baso # (Auto) 0.0 (0.0-0.1) K/mm3 Abs Immat Gran (auto) 0.03 (0.00-0.031) K/mm3 Absolute Neuts (auto) 6.4 (1.3-6.7) K/mm3 Absolute Nucleated RBC 0.000 (0.0-0.012) K/mm3 Nucleated RBC % 0.0 (0.0-0.2) % Sodium 138 (137-145) mmol/L Potassium 3.7 (3.4-5.0) mmol/L Chloride 103 (98-107) mmol/L Carbon Dioxide 27 (22-30) mmol/L Anion Gap 8 (4-12) mmol/L BUN 15 (9-20) mg/dL Creatinine 1.08 (0.7-1.3) mg/dL Estim Creat Clear Calc 82 ml/min Estimated GFR > 60 (59 - ) Glucose 105 (65-110) mg/dL Lactic Acid 0.6 L (0.7-2.0) mmol/L Calcium 8.6 (8.4-10.2) mg/dL Total Bilirubin 0.8 (0.2-1.3) mg/dL AST 35 (17-59) U/L ALT 24 (6-50) U/L Alkaline Phosphatase 58 (38-126) U/L Total Creatine Kinase 334 H (55-170) U/L Troponin I < 0.012 (0.000-0.034) ng/mL Total Protein 7.2 (6.3-8.2) g/dL Albumin 4.2 (3.5-5.1) g/dL Urine Color Yellow (Yellow) Urine Appearance Clear (Clear) Urine pH 5.5 (5.0-9.0) Ur Specific [place] 1.018 (1.001-1.035) Urine Protein Trace (Negative) mg/dL Urine Glucose (UA) Negative (Negative) mg/dL Urine Ketones Negative (Negative) mg/dL Ur Blood (Man) Negative (Negative) Urine Nitrate Negative (Negative) Urine Bilirubin Negative (Negative) Urine Urobilinogen 0.2 (<2.0) mg/dL Add Ur Microanalysis Reviewed Leukocyte Esterase Rfl 1+ H (Negative) CHRISTINA/UL Urine RBC 0-2 (0-2) /hpf Urine WBC 0-5 (0-3) /hpf Ur Squamous Epith Cells Occasional (Few) /hpf Urine Bacteria None seen /hpf Urine Casts 0-2 Urine Opiates Screen Negative (Negative) Urine Methadone Screen Negative (Negative) Ur Barbiturates Screen Negative (Negative) Ur Phencyclidine Scrn Negative (Negative) Ur Amphetamine Screen Negative (Negative) U Benzodiazepines Scrn Negative (Negative) Urine Cocaine Screen Negative (Negative) U Cannabinoids Screen Positive A (Negative) Ethyl Alcohol < 10 (<10) mg/dL Imaging Data Radiologist's impression: Chest x-ray: No acute focal infiltrate or consolidation is identified. No pneumothorax or pleural effusion. CT brain: Normal appearance of the brain. No acute intracranial hemorrhage or infarct is identified. The paranasal sinuses and mastoid air cells are normal. No skull fracture or scalp hematoma is seen CT cervical spine: No acute fracture or subluxation is seen ECG Data EKG #1: ECG completion date: 12/18/24 EKG Interpretation: bradycardia, sinus rhythm, non-specific ST changes (T wave inversions), normal QT and no acute changes (compared to EKG 12/19/23) Critical Care Time Critical Care Time Critical Care Time: No Discharge Plan Discharge Clinical Impression: Syncope and collapse, Seizure-like activity Head injury Qualifiers: Encounter type: initial encounter Qualified Code(s): S09.90XA - Unspecified injury of head, initial encounter Patient Disposition: Home Condition: Stable Instructions: Syncope (ED), Head Injury (ED) Additional Instructions: Return to the emergency department if you experience fever, chest pain, shortness of breath, abdominal pain with nausea and vomiting, weakness, numbness, or any other symptoms that are concerning to you. Continue your home medications as prescribed Follow up with primary care doctor and neurology Do not drive or operate heavy machinery Patient Language: Nepali Prescriptions: No Action colchicine 0.6 mg tablet 0.3 mg PO DAILY Qty: 7 0RF ibuprofen 800 mg tablet 800 mg DIRECTED montelukast 10 mg tablet 10 mg DIRECTED (DME) Aerochamber MV Spacer See Rx Instructions .Route Qty: 1 0RF Rx Instructions: As directed pantoprazole 20 mg tablet,delayed release (DR/EC) 20 mg PO QAM (DME) marijuana 0 .Route .MEDSUPPLY Patient Comments: EDIBLES 5MG THC. TAKEN FOR PAIN AND SLEEP duloxetine [Cymbalta] 30 mg capsule,delayed release(DR/EC) 30 mg PO BID pregabalin [Lyrica] 300 mg capsule 300 mg PO BID cetirizine [Zyrtec] 10 mg Tablet 10 mg PO DAILY Follow-up/Referrals: Beatrice,Daryl Luna MD [Primary Care Provider, Unknown] Ivis Faust MD [Physician, Neurology]
[2024-12-18 21:30] LABS: Hematocrit 36.1 % (42.0-52.0); Hemoglobin 12.2 g/dL (14.0-18.0); Immature Granulocyte Percent A 0.3 % (0-0.5); Lymphocytes Absolute Auto 2.41 K/mm3 (0.9-3.2); Mean Corpuscular HGB Conc 33.8 g/dl (32-36); Mean Corpuscular Hemoglobin 28.0 pg (26-34); Mean Corpuscular Volume 83.0 fl (80-100); Nucleated Red Blood Cells Absolute Auto 0.000 K/mm3 (0.0-0.012); Nucleated Red Blood Cells Perc 0.0 % (0.0-0.2); Platelet Count Result 207 k/mm3 (150-375); Red Blood Count 4.35 M/mm3 (4.6-6.20); White Blood Count 9.7 K/mm3 (4.5-10.0)
[2024-12-18 21:33] LABS: Add Urine Microscopic? YES; Appearance Urine Clear (Clear); Glucose Urine UA Negative (Negative); Leukocyte Esterase Ur 1+ LEU/UL (Negative); Need Manual Microscopic Reviewed; Nitrate Urine Negative (Negative); Non Pathogenic Casts 0-2; Specific Grav Ur 1.018 (1.001-1.035)
[2024-12-18] MEDS: ACETAMINOPHEN 500 MG TABLET 1000 MG PO (21:44)
[2024-12-18 21:45] LABS: Cannabinoid Screen Urine Positive (Negative)
[2024-12-18 21:45] LABS: Alanine Aminotransferase 24 U/L (6-50); Albumin Level 4.2 g/dL (3.5-5.1); Alkaline Phosphatase 58 U/L (38-126); Anion Gap 8 mmol/L (4-12); Aspartate Amino Transferase 35 U/L (17-59); Bilirubin,Total 0.8 mg/dL (0.2-1.3); Blood Urea Nitrogen 15 mg/dL (9-20); Calcium 8.6 mg/dL (8.4-10.2); Carbon Dioxide 27 mmol/L (22-30); Chloride 103 mmol/L (98-107); Creatine Kinase 334 U/L (55-170); Estimated CRCL calculation 82 ml/min; Estimated Glomerular Filt Rate > 60; Glucose 105 mg/dL (65-110); Potassium 3.7 mmol/L (3.4-5.0); Sodium 138 mmol/L (137-145); Total Protein 7.2 g/dL (6.3-8.2)
[2024-12-18] MEDS: SODIUM CHLORIDE 0.9% IV 1,000 ML 999 ML IV CONT (21:45)
[2024-12-18 21:56] LABS: Troponin I < 0.012 ng/mL (0.000-0.034)
[2024-12-19 00:28] VITALS: BP 148/63; PULSE 64; RESP 20; O2SAT 98
== END 2024-12-19 00:29 | disposition home or self-care (01) ==
PROVIDERS: Emergency Provider Physician Assistant; PCP Family Medicine
DX: R56.9 Unspecified convulsions (principal); R55 Syncope and collapse; S09.90XA Unspecified injury of head, initial encounter; I10 Essential (primary) hypertension; J45.909 Unspecified asthma, uncomplicated; E11.9 Type 2 diabetes mellitus without complications; G47.33 Obstructive sleep apnea (adult) (pediatric); F32.A Depression, unspecified; Z98.1 Arthrodesis status; Z79.899 Other long term (current) drug therapy; W18.39XA Other fall on same level, initial encounter
CPT/HCPCS: 36415; 70450; 71045; 72125; 80053; 80307; 81001; 82077; 82550; 83605; 84484; 85025; 87086; 93005; 96360; 99284; A9270; J7030